=== PATIENT | male | born 1950 | race Caucasian/White ===

== ENCOUNTER 2017-03-26 14:40 | Inpatient (IN) | payer MEDICARE, MEDICAID ==
--- NOTE | 2017-03-26 14:52 | ED Physician Chart ---
ED Chief Complaint/HPI - Patient Information Date Seen:: 03/26/17 Time Seen:: 14:45 Chief Complaint:: Agitation History of Present Illness:: onset x one day of agitation and a threat to others; no report of SIs, trauma, H /As, S/T, C/P, SOB, Abd. Pain, A/N/V/D/C, fever, chills, or urinary s/s Historian:: Patient, EMS Review:: Nurse's Note Reviewed, EMS run form Reviewed ED Review of Systems - Review of Systems General/Constitutional: No fever, No chills, No weight loss, No weakness, No diaphoresis, No edema, No loss of appetite Skin: No skin lesions, No rash, No bruising Head: No headache, No light-headedness Eyes: No loss of vision, No pain, No diplopia ENT: No earache, No nasal drainage, No sore throat, No tinnitus Neck: No neck pain, No swelling, No thyromegaly, No stiffness, No mass noted Cardio Vascular: No chest pain, No palpitations, No PND, No orthopnea, No edema Pulmonary: No SOB, No cough, No sputum, No wheezing GI: No nausea, No vomiting, No diarrhea, No pain, No melena, No hematochezia, No constipation, No hematemesis G/U: No dysuria, No frequency, No hematuria, No nacturia Musculoskeletal: No bone or joint pain, No back pain, No muscle pain Endocrine: No polyuria, No polydipsia Psychiatric: Prior psych history, No depression, Anxiety, No suicidal ideation, No homicidal ideation, No auditory hallucination, No visual hallucination Hematopoietic: No bruising, No lymphadenopathy Allergic/Immuno: No urticaria, No angioedema Neurological: No syncope, No focal symptoms, No weakness, No paresthesia, No headache, No seizure, No dizziness, No confusion, No vertigo ED Past Medical History - Past Medical History Obtainable: Yes Past Medical History: DM, CAD, CHF, CVA/TIA, Dyslipidemia, Thyroid disorder, Arthritis, Other (Anemia) Family History: Diabetes Melitus, HTN Social History: Non Smoker, No Alcohol, No Drug Use, Single, Care Facility Surgical History: None Psychiatricy History: Schizophrenia, Bipolar Medication: Reviewed Family Medical History - Family Member Father Living Status: Hx Family Cancer: No Hx Family Coronary Artery Disease: No Hx Family Congestive Heart Failure: No Hx Family Diabetes: No Hx Family Seizures: No Hx Family HIV: No Hx Family Tuberculosis: No ED Physical Exam - Physical Examination General/Constitutional: Awake, Well-developed, well-nourished, Alert, No distress, GCS 15, Non-toxic appearing, Ambulatory Head: Atraumatic Eyes: Lids, conjuctiva normal, PERRL, EOMI Skin: Nl inspection, No rash, No skin lesions, No ecchymosis, Well hydrated, No lymphadenopathy ENMT: External ears, nose nl, TM canals nl, Nasal exam nl, Lips, teeth, gums nl , Oropharynx nl, Tonsils nl Neck: Nontender, Full ROM w/o pain, No JVD, No nuchal rigidity, No bruit, No mass, No stridor Respiratory: Nl effort/Exclusion, Clear to Auscultation, No Wheeze/Rhonchi/Rales Cardio Vascular: RRR, No murmur, gallop, rubs, NL S1 S2, Carotid/Femoral/Distal pulses equal bilaterally GI: No tenderness/rebounding/guarding, No organomegaly, No hernia, Normal BS's, Nondistended, No mass/bruits, No McBurney tenderness : No CVA tenderness Extremities: No tenderness or effusion, Full ROM, normal strength in all extremities, No edema, Normal digits & nails Neuro/Psych: Alert/oriented, DTR's symmetric, Normal sensory exam, Normal motor strength, Judgement/insight normal, Mood normal, Normal gait, No focal deficits Other Neuro/Psych comments:: no SIs; Mood/Affect: Stable Misc: Normal back, No paraspinal tenderness ED Labs/Radiology/EKG Results - Lab Results Comments:: Glucoce: 301; Na+: 134 - EKG Interpretations EKG Time:: 15:00 Rate & Rhythm: 83; NSR Comments:: non-specific st-t changes ED Septic Shock - . Is Septic Shock (SBP<90, OR Lactate>4 mmol\L) present?: No ED Reassessment (Disposition) - Reassessment Reassessment Condition:: Improved - Diagnosis Diagnosis:: Diabetes Mellitus; Hyperglycemia; Hyponatremia; Medical Clearance; Bipolar Disorder; Agitation - Aftercare/Follow up Instructions Aftercare/Follow-Up Instructions:: Counseled pt regarding lab results/diagnosis & need follow up, Counseled pt & family regarding lab results/diagnosis & need follow up - Patient Disposition Discharge/Transfer:: Acute Care w/in this hosp Admitted to:: [facility] Condition at Disposition:: Stable, Improved
[2017-03-26 15:18] LABS: % BASOPHILS 0.1 % (0.0-2.0); % EOSINOPHILS 1.5 % (0.0-5.0); % LYMPHOCYTES 24.8 % (20.0-50.0); % MONOCYTES 3.6 % (2.0-10.0); EOSINOPHILE ABSOLUTE 0.1 Th/cmm (0.1-0.4); HEMOGLOBIN 15.4 gm/dL (12-16); LYMPHOCYTE ABSOLUTE 1.7 Th/cmm (1.5-3.0); MEAN CELL VOLUME 92.8 fl (80-99); MEAN CORPUSCULAR HGB CONC 33.4 pg (28.0-36.0); MEAN PLATELET VOLUME 7.9 fl; MONOCYTE ABSOLUTE 0.2 Th/cmm (0.3-1.0); NEUTROPHILE ABSOLUTE 4.8 Th/cmm (1.8-8.0); PLATELET COUNT 265 Th/cmm (150-400); RED BLOOD COUNT 4.96 Mil/cmm (3.80-5.80); RED CELL DISTRIBUTION WIDTH 12.9 % (11.5-20.0); WHITE BLOOD COUNT 6.8 Th/cmm (4.8-10.8)
[2017-03-26 15:38] LABS: ALB/GLOB RATIO 1.2 (1.0-1.8); ALBUMIN 4.1 gm/dL (4.2-5.5); ALKALINE PHOSPHATASE 71 U/L (34-104); ANION GAP 11.7 (7.0-16.0); BILIRUBIN,TOTAL 0.6 mg/dL (0.3-1.0); BUN - UREA NITROGEN 12 mg/dL (7-25); CALCIUM SERUM 9.4 mg/dL (8.6-10.3); CARBON DIOXIDE 28.4 mEq/L (21.0-31.0); CHLORIDE 98 mEq/L (98-107); CHOLESTEROL 155 mg/dL (<200); CREATININE - SERUM 0.6 mg/dL (0.7-1.3); GFR AFRICAN-AMERICAN > 60.0 ml/min (>90); GFR NON AFRICAN-AMERICAN > 60.0 ml/min; GLUCOSE 301 mg/dL (70-105); HDL -HIGH DENSITY LIPOPROTEIN 39 mg/dL (23-92); POTASSIUM SERUM 4.1 mEq/L (3.5-5.1); SGOT 16 U/L (13-39); SGPT/ALT 20 U/L (7-52); SODIUM SERUM 134 mEq/L (136-145); TOTAL PROTEIN,SERUM 7.6 gm/dL (6.0-8.3); TRIGLYCERIDES 205 mg/dL (<150)
[2017-03-26 15:52] LABS: ACETAMINOPHEN < 10.0 ug/mL (10.0-30.0); SALICYLATES (ASPIRIN) < 25.0 mg/L (30.0-100.0)
[2017-03-26 15:53] LABS: URINE MICROSCOPIC INDICATED? YES; URINE SOURCE CLEAN C
[2017-03-26 15:57] LABS: URINE BILIRUBIN NEGATIVE (NEGATIVE); URINE BLOOD NEGATIVE (NEGATIVE); URINE GLUCOSE (UA) >=1000 mg/dL (NEGATIVE); URINE KETONE TRACE mg/dL (NEGATIVE); URINE LEUKOCYTE ESTERASE NEGATIVE (NEGATIVE); URINE NITRATE NEGATIVE (NEGATIVE); URINE PROTEIN NEGATIVE (NEGATIVE)
[2017-03-26 16:04] LABS: URINE CLARITY CLEAR (CLEAR); URINE COLOR YELLOW
[2017-03-26 16:07] LABS: URINE BACTERIA NONE SEEN /hpf (NONE SEEN); URINE EPITHELIAL CELLS NONE SEEN /lpf (FEW); URINE RBC NONE SEEN /hpf (0-5); URINE WBC NONE SEEN /hpf (0-5)
[2017-03-26 16:17] LABS: AMPHETAMINE URINE NEGATIVE (NEGATIVE); BARBITURATES URINE NEGATIVE (NEGATIVE); BENZODIAZEPINES QUAL URINE NEGATIVE (NEGATIVE); CANNABINOID THC NEGATIVE (NEGATIVE); COCAINE METABOLITE QUAL URINE NEGATIVE (NEGATIVE); METHADONE URINE NEGATIVE (NEGATIVE); METHAMPHETAMINES QUAL URINE NEGATIVE (NEGATIVE); OPIATES (MORPHINE) QUAL. URINE NEGATIVE (NEGATIVE); PHENCYCLIDINE (PCP) URINE NEGATIVE (NEGATIVE); TRICYCLICS (TCA) QUAL. URINE NEGATIVE (NEGATIVE)
[2017-03-26] MEDS ORDERED: INSULIN HUMAN REGULAR 100 UNITS/ML UNIT SUBQ ONE (16:50)
[2017-03-26 18:07] VITALS: BP 130/89
[2017-03-26] MEDS: INSULIN ASPART SLIDING SCALE 100 UNITS/ML UNIT SUBQ SCH (20:28)
[2017-03-26] MEDS: Polyvinyl Alcohol Ophth Soln 15 mL Bottle EACH EYE SCH (21:20)
--- NOTE | 2017-03-26 22:03 | History & Physical ---
ADMIT DATE: 03/26/2017 HISTORY OF PRESENT ILLNESS: This patient came to the Emergency Room, brought from the halfway with a history that he has been having history of severe agitation, threat to others from nursing facility. No history of nausea, vomiting, diarrhea, fever, chills, etc. History obtained from the EMS. Nurses' notes were reviewed. The patient has no fever, no chills, no rigors, no neck pain, no chest pain, no shortness of breath. Cardiovascular montoya also negative. No bone pain. PAST MEDICAL HISTORY: The patient has a family history of diabetes and hypertension, and history of hypertension, diabetes and history of CVA. PHYSICAL EXAMINATION: GENERAL: Well-developed, well-nourished male. VITAL SIGNS: Stable. HEENT: Head: Normal. ENT: Normal. NECK: Supple, nontender. LUNGS: Clear. CARDIOVASCULAR SYSTEM: S1, S2 heard. ABDOMEN: Soft. Bowel sounds are heard. LABORATORY AND DIAGNOSTIC DATA: EKG showed nonspecific ST-T changes. ADMITTING DIAGNOSES: Bipolar disorder, agitation, hyponatremia, hyperglycemia, diabetes mellitus. The patient is going to be admitted to Geropsych Unit where I will be following the patient and take care of his medical problems. JOB# [id number]
[2017-03-27] MEDS: INSULIN ASPART SLIDING SCALE 100 UNITS/ML UNIT SUBQ SCH ×4 (06:39→21:20)
[2017-03-27] MEDS ORDERED: METFORMIN HCL 500 MG PO SCH (09:00)
[2017-03-27 09:08] LABS: INR 1.23 (0.5-1.4); PROTHROMBIN TIME (TEST) 12.9 SECONDS (9.5-11.5)
[2017-03-27] MEDS: Multivitamin Tab PO SCH (09:10)
[2017-03-27] MEDS: Docusate Sodium 100 mg/10 mL UD PO SCH (09:16)
[2017-03-27] MEDS: Vitamin D3 2,000 IU SGL PO SCH (09:17)
[2017-03-27] MEDS: Polyvinyl Alcohol Ophth Soln 15 mL Bottle EACH EYE SCH ×4 (09:25→21:21)
--- NOTE | 2017-03-27 10:02 | General Progress Note ---
Subjective - Review of Systems Events since last encounter: patient agitated irritable Objective - Results Result Diagrams: 03/26/17 15:10 03/26/17 15:10 Recent Labs: Laboratory Last Values WBC 6.8 Th/cmm (4.8-10.8) 03/26/17 15:10 RBC 4.96 Mil/cmm (3.80-5.80) 03/26/17 15:10 Hgb 15.4 gm/dL (12-16) 03/26/17 15:10 Hct 46.0 % (41.0-60) 03/26/17 15:10 MCV 92.8 fl (80-99) 03/26/17 15:10 MCH 31.0 pg (27.0-31.0) 03/26/17 15:10 MCHC Differential 33.4 pg (28.0-36.0) 03/26/17 15:10 RDW 12.9 % (11.5-20.0) 03/26/17 15:10 Plt Count 265 Th/cmm (150-400) 03/26/17 15:10 MPV 7.9 fl 03/26/17 15:10 Neutrophils % 70.0 % (40.0-80.0) 03/26/17 15:10 Lymphocytes % 24.8 % (20.0-50.0) 03/26/17 15:10 Monocytes % 3.6 % (2.0-10.0) 03/26/17 15:10 Eosinophils % 1.5 % (0.0-5.0) 03/26/17 15:10 Basophils % 0.1 % (0.0-2.0) 03/26/17 15:10 PT 12.9 SECONDS (9.5-11.5) H 03/27/17 08:30 INR 1.23 (0.5-1.4) 03/27/17 08:30 PTT (Actin FS) 25.9 SECONDS (26.0-38.0) L 03/27/17 08:30 Sodium 134 mEq/L (136-145) L 03/26/17 15:10 Potassium 4.1 mEq/L (3.5-5.1) 03/26/17 15:10 Chloride 98 mEq/L (98-107) 03/26/17 15:10 Carbon Dioxide 28.4 mEq/L (21.0-31.0) 03/26/17 15:10 Anion Gap 11.7 (7.0-16.0) 03/26/17 15:10 BUN 12 mg/dL (7-25) 03/26/17 15:10 Creatinine 0.6 mg/dL (0.7-1.3) L 03/26/17 15:10 Est GFR ( Amer) > 60.0 ml/min (>90) 03/26/17 15:10 Est GFR (Non-Af Amer) > 60.0 ml/min 03/26/17 15:10 BUN/Creatinine Ratio 20.0 03/26/17 15:10 Glucose 301 mg/dL (70-105) H 03/26/17 15:10 Calcium 9.4 mg/dL (8.6-10.3) 03/26/17 15:10 Total Bilirubin 0.6 mg/dL (0.3-1.0) 03/26/17 15:10 AST 16 U/L (13-39) 03/26/17 15:10 ALT 20 U/L (7-52) 03/26/17 15:10 Alkaline Phosphatase 71 U/L (34-104) 03/26/17 15:10 Total Protein 7.6 gm/dL (6.0-8.3) 03/26/17 15:10 Albumin 4.1 gm/dL (4.2-5.5) L 03/26/17 15:10 Globulin 3.5 gm/dL 03/26/17 15:10 Albumin/Globulin Ratio 1.2 (1.0-1.8) 03/26/17 15:10 Triglycerides 205 mg/dL (<150) H 03/26/17 15:10 Cholesterol 155 mg/dL (<200) 03/26/17 15:10 LDL Cholesterol Direct 100 mg/dL (75-193) 03/26/17 15:10 HDL Cholesterol 39 mg/dL (23-92) 03/26/17 15:10 TSH 3.29 uIU/ml (0.34-5.60) 03/26/17 15:10 Urine Source CLEAN C 03/26/17 15:40 Urine Color YELLOW 03/26/17 15:40 Urine Clarity CLEAR (CLEAR) 03/26/17 15:40 Urine pH 7.0 (4.6 - 8.0) 03/26/17 15:40 Ur Specific [place] 1.015 (1.005-1.030) 03/26/17 15:40 Urine Protein NEGATIVE mg/dL (NEGATIVE) 03/26/17 15:40 Urine Glucose (UA) >=1000 mg/dL (NEGATIVE) H 03/26/17 15:40 Urine Ketones TRACE mg/dL (NEGATIVE) 03/26/17 15:40 Urine Blood NEGATIVE (NEGATIVE) 03/26/17 15:40 Urine Nitrate NEGATIVE (NEGATIVE) 03/26/17 15:40 Urine Bilirubin NEGATIVE (NEGATIVE) 03/26/17 15:40 Urine Urobilinogen 4.0 E.U./dL (0.2 - 1.0) H 03/26/17 15:40 Ur Leukocyte Esterase NEGATIVE (NEGATIVE) 03/26/17 15:40 Urine RBC NONE SEEN /hpf (0-5) 03/26/17 15:40 Urine WBC NONE SEEN /hpf (0-5) 03/26/17 15:40 Ur Epithelial Cells NONE SEEN /lpf (FEW) 03/26/17 15:40 Urine Bacteria NONE SEEN /hpf (NONE SEEN) 03/26/17 15:40 Salicylates < 25.0 mg/L (30.0-100.0) L 03/26/17 15:10 Urine Opiates Screen NEGATIVE (NEGATIVE) 03/26/17 15:40 Urine Methadone Screen NEGATIVE (NEGATIVE) 03/26/17 15:40 Acetaminophen < 10.0 ug/mL (10.0-30.0) L 03/26/17 15:10 Ur Barbiturates Screen NEGATIVE (NEGATIVE) 03/26/17 15:40 Valproic Acid 11.6 ug/mL (50.0-100.0) L 03/27/17 08:30 Ur Tricyclics Screen NEGATIVE (NEGATIVE) 03/26/17 15:40 Ur Phencyclidine Scrn NEGATIVE (NEGATIVE) 03/26/17 15:40 Amphetamines Screen NEGATIVE (NEGATIVE) 03/26/17 15:40 U Methamphetamines Scrn NEGATIVE (NEGATIVE) 03/26/17 15:40 U Benzodiazepines Scrn NEGATIVE (NEGATIVE) 03/26/17 15:40 U Cocaine Metab Screen NEGATIVE (NEGATIVE) 03/26/17 15:40 U Cannabinoids Screen NEGATIVE (NEGATIVE) 03/26/17 15:40 Ethyl Alcohol < 10 mg/dL (0-10) 03/26/17 15:10 - Physical Exam Vitals and I&O: Vital Signs Temp 98.6 F 03/27/17 06:26 Pulse 70 03/27/17 06:26 Resp 19 03/27/17 06:26 BP 110/64 03/27/17 06:26 Pulse Ox 96 03/27/17 06:26 Intake & Output 03/26/17 03/27/17 03/27/17 18:59 06:59 18:59 Intake Total 120 Balance 120 Intake: Oral 120 Other: # Voids 3 Active Medications: Current Medications Acetaminophen (Tylenol) 650 mg PO Q4HR PRN PRN Reason: Pain (Mild) Stop: 05/25/17 18:48 Artificial Tears (Artificial Tears Ophth Soln) 1 drop EACH EYE QID [facility] Stop: 05/25/17 21:29 Last Admin: 03/27/17 09:25 Dose: Not Given Baclofen (Lioresal) 5 mg PO Q8HR LG Stop: 05/25/17 20:59 Last Admin: 03/27/17 05:45 Dose: 5 mg Cyanocobalamin (Vitamin B12) 1,000 mcg PO DAILY LG Stop: 05/26/17 08:59 Last Admin: 03/27/17 09:17 Dose: 1,000 mcg Divalproex Sodium (Depakote Dr) 375 mg PO HS LG PRN Reason: Protocol Stop: 05/25/17 21:59 Last Admin: 03/26/17 22:21 Dose: Not Given Docusate Sodium (Colace) 250 mg PO DAILY LG Stop: 05/26/17 08:59 Last Admin: 03/27/17 09:16 Dose: 250 mg Fluocinonide (Lidex 0.05%) 1 appl TP DAILY LG Stop: 05/26/17 08:59 Last Admin: 03/27/17 09:17 Dose: Not Given Folic Acid (Folate) 1 mg PO DAILY LG Stop: 05/26/17 08:59 Last Admin: 03/27/17 09:18 Dose: 1 mg Glimepiride (Amaryl) 4 mg PO BID LG Stop: 05/26/17 08:59 Last Admin: 03/27/17 09:10 Dose: 4 mg Insulin Aspart (Novolog Insulin Sliding Scale) 0 units SUBQ ACHS LG PRN Reason: Protocol Stop: 05/25/17 20:59 Last Admin: 03/27/17 06:39 Dose: Not Given Ketoconazole (Nizoral 2% Cream) 1 appl TP DAILY [facility] Stop: 05/26/17 08:59 Last Admin: 03/27/17 09:18 Dose: Not Given Loratadine (Claritin) 10 mg PO DAILY [facility] Stop: 05/26/17 08:59 Last Admin: 03/27/17 09:10 Dose: 10 mg Lorazepam (Ativan) 0.5 mg PO Q4HR PRN; Protocol PRN Reason: Anxiety/Agitation Stop: 05/25/17 21:15 Metformin HCl (Glucophage) 500 mg PO BID [facility] Stop: 05/26/17 08:59 Last Admin: 03/27/17 09:09 Dose: 500 mg Methimazole (Tapazole) 5 mg PO DAILY [facility] Stop: 05/26/17 08:59 Last Admin: 03/27/17 09:28 Dose: Not Given Multivitamins/Vitamin C (Theragran) 1 tab PO DAILY [facility] Stop: 05/26/17 08:59 Last Admin: 03/27/17 09:10 Dose: 1 tab Quetiapine Fumarate (Seroquel) 25 mg PO TID LG PRN Reason: Protocol Stop: 05/26/17 08:59 Last Admin: 03/27/17 09:28 Dose: Not Given Simvastatin (Zocor) 40 mg PO HS [facility] Stop: 05/26/17 20:59 Tramadol HCl (Ultram) 50 mg PO TID PRN PRN Reason: Pain (Moderate) Stop: 05/25/17 18:48 Last Admin: 03/26/17 20:26 Dose: 50 mg Vitamin D (Vitamin D3) 2,000 iu PO DAILY [facility] Stop: 05/26/17 08:59 Last Admin: 03/27/17 09:17 Dose: 2,000 iu Warfarin Sodium (Coumadin) 2 mg PO DAILY LG PRN Reason: Protocol Stop: 05/26/17 08:59 Warfarin Sodium (Coumadin Per Pharmacy) 1 ea MC UD [facility] Stop: 05/26/17 08:59 Zolpidem Tartrate (Ambien) 5 mg PO HS PRN PRN Reason: Insomnia Stop: 05/25/17 21:17 General: No acute distress HEENT: Atraumatic Neck: Supple, JVD Cardiovascular: Regular rate, Normal S1 Assessment/Plan - Problem List Patient Problems: All Active Problems Agitation (Acute) R45.1 Bipolar disease, chronic (Acute) F31.9 Diabetes mellitus (Acute) E11.9 Diabetes mellitus (Acute) E11.9 Hyperglycemia (Acute) R73.9 Hyponatremia (Acute) E87.1 - Plan Plan: cpm as per psych
[2017-03-27 12:58] LABS: A1C % 9.8 % (4.0-6.0)
--- NOTE | 2017-03-27 20:20 | Psychosocial Evaluation ---
DATE OF SERVICE: 03/26/2017 INITIAL EVALUATION MENTAL STATUS EXAM AGE: 66. SEX: Male. PHYSICIAN: Dr. Gómez. CHIEF COMPLAINT: 5150 hold for dangerous to others. HISTORY OF PRESENT ILLNESS: The patient is a 66-year-old male, who was placed on a [address] Bal and Dr. Hodges to [facility] from [facility]. The patient has been threatening his roommate and has been cursing the staff in the jail. Also, has been throwing items at staff and other residents. Also, has been angry, agitated, yelling, and threatening staff and he was not able to follow directions. The patient has history of bipolar disorder and has been easily angry and agitated. PAST PSYCHIATRIC HISTORY: The patient has history of bipolar disorder with multiple psychiatric hospitalizations. PAST MEDICAL HISTORY: The patient has right below knee amputation. FAMILY HISTORY: Noncontributory. SOCIAL HISTORY: The patient lives in [facility]. No known alcohol or drug use. ALLERGIES: No known allergies. MENTAL STATUS EXAMINATION: The patient appears his stated age. Heavy makeup on face. Thought processes are circumstantial with occasional flight of ideas. The patient denies any auditory or visual hallucinations, but seems to be responding to stimuli. The patient denies suicidal or homicidal ideations. The patient is alert and oriented to time, place, person, and situation. Intact immediate, recent, and remote memories. Poor insight and poor judgment. TREATMENT PLAN: We will monitor the patient's behavior and condition closely. We will restart psychotropic medications. We will adjust psychotropic medications and work on his poor impulse control. ESTIMATED LENGTH OF STAY: 5-7 days. THE PATIENT'S STRENGTHS AND WEAKNESSES: The patient's strength is not clear at this time. Weaknesses is ineffective coping and is agitation. AFTER DISCHARGE PLAN: Outpatient treatment and followup will continue as an outpatient. CRITERIA FOR DISCHARGE: The patient will not be psychotic or agitated and will stabilize psychotropic medications and will establish outpatient treatment plans. JOB# [id number]
--- NOTE | 2017-03-28 00:03 | Progress Notes ---
DATE: SUBJECTIVE: Chart reviewed and the patient interviewed. Also discussed the patient's condition with the staff and reviewed records and labs. The patient is still irritable and is still agitated. The patient also is still disruptive and is still aggressive with peers and with the staff. Also, still needs lots of redirections. The patient also still has difficulty with his mood and he is still easily agitated and needs lots of observation because of unpredictable behavior. On the other hand, the patient is compliant with taking his medications. The patient denies any side effects of medications. ASSESSMENT: The patient is still agitated and irritable and can be dangerous to others. TREATMENT PLAN: The patient is taking Depakote. We will add Seroquel in a dose of 25 mg 3 times a day and we will continue to monitor his behavior and his condition closely. Also, we will get Depakote blood level. JOB# [id number]
[2017-03-28] MEDS: INSULIN ASPART SLIDING SCALE 100 UNITS/ML UNIT SUBQ SCH ×4 (07:15→20:52)
[2017-03-28 09:09] LABS: INR 1.16 (0.5-1.4); PROTHROMBIN TIME (TEST) 12.2 SECONDS (9.5-11.5)
[2017-03-28] MEDS: Vitamin D3 2,000 IU SGL PO SCH (09:09)
[2017-03-28] MEDS: Docusate Sodium 100 mg/10 mL UD PO SCH (09:10)
[2017-03-28] MEDS: Multivitamin Tab PO SCH (09:10)
[2017-03-28] MEDS: Polyvinyl Alcohol Ophth Soln 15 mL Bottle EACH EYE SCH ×4 (09:11→20:53)
[2017-03-29] MEDS: INSULIN ASPART SLIDING SCALE 100 UNITS/ML UNIT SUBQ SCH ×4 (06:41→21:14)
[2017-03-29] MEDS: Docusate Sodium 100 mg/10 mL UD PO SCH (08:35)
[2017-03-29] MEDS: Multivitamin Tab PO SCH (08:38)
[2017-03-29] MEDS: Vitamin D3 2,000 IU SGL PO SCH (08:38)
--- NOTE | 2017-03-29 08:58 | Progress Notes ---
DATE: 03/28/2017 SUBJECTIVE: Chart reviewed and the patient interviewed. Also discussed the patient's condition with the staff and reviewed records and labs. The patient seems to be calmer and he is less agitated. The patient also is still withdrawn and guarded. The patient also refused to take insulin and when asking about the reasons, the patient said "because I am taking metformin and I do not like insulin." He also still at times feels hopeless. The patient also is still easily agitated at times. Otherwise, the patient is compliant with taking his medications and no side effects of medications. ASSESSMENT: The patient is still depressed and periods of agitation. TREATMENT PLAN: We will continue to monitor his behavior and his condition closely. Also, continue to work on his compliance with treatment and also on his ineffective coping as well as poor impulse control. JOB# [id number]
[2017-03-29] MEDS: Polyvinyl Alcohol Ophth Soln 15 mL Bottle EACH EYE SCH ×4 (09:20→21:16)
--- NOTE | 2017-03-29 18:45 | Progress Notes ---
DATE: 03/29/2017 SUBJECTIVE: The patient was seen in his room, lying in the bed. The patient is asleep, but easily arousable, otherwise the patient appears to be comfortable in no acute distress. The patient appears to be irritable and guarded at this time. OBJECTIVE: VITAL SIGNS: Temperature of 97.4, heart rate of 81, respiration 20, blood pressure 120/67, 98% on room air. HEENT: Head is atraumatic and normocephalic. Eyes: Bilateral conjunctivae are clear. Bilateral pupils are equally round and reactive. NECK: Supple. No JVD. CARDIOVASCULAR: S1 and S2, without murmur. PULMONARY: Clear to auscultation. GASTROINTESTINAL: Soft and nontender without guarding. Positive bowel sounds. MUSCULOSKELETAL: No clubbing, no cyanosis noted. ASSESSMENT: 1. Bipolar disorder. 2. Diabetes mellitus. 3. Osteoarthritis. 4. Vitamin D deficiency. 5. Anemia. 6. Hyperlipidemia. PLAN: We will continue to keep the patient inpatient. We will follow up with the psychiatrist to monitor the patient's condition and behavior. Treatment plans were discussed with the patient's nurse. Treatment plans were discussed with Dr. Corley. JOB# [id number]
[2017-03-30] MEDS: INSULIN ASPART SLIDING SCALE 100 UNITS/ML UNIT SUBQ SCH ×4 (06:47→21:41)
[2017-03-30 07:41] LABS: INR 1.25 (0.5-1.4); PROTHROMBIN TIME (TEST) 13.1 SECONDS (9.5-11.5)
--- NOTE | 2017-03-30 08:02 | Progress Notes ---
DATE: PSYCHIATRIC PROGRESS NOTE SUBJECTIVE: Chart reviewed and the patient interviewed. Also discussed the patient's condition with the staff and reviewed the record and labs. The patient still had episodes of agitation and anger, but his affect is brighter. The patient also is still having mood swings. He also is still refusing to take insulin, but his reasoning is because he is taking metformin. Discussed with the patient that his insulin is because his blood sugar is still high, although he is taking metformin and he needs both. Otherwise, the patient seems to be slightly calmer than before and he is quiet. ASSESSMENT: The patient is still anxious and is still agitated. TREATMENT PLAN: We will continue monitoring his behavior and his condition closely. Also, continue to work on both his ineffective coping and his impulse control and we will continue to follow up. [facility]# [id number]
[2017-03-30] MEDS: Vitamin D3 2,000 IU SGL PO SCH (08:57)
[2017-03-30] MEDS: Multivitamin Tab PO SCH (08:57)
[2017-03-30] MEDS: Polyvinyl Alcohol Ophth Soln 15 mL Bottle EACH EYE SCH ×4 (08:58→21:35)
[2017-03-30] MEDS: Docusate Sodium 100 mg/10 mL UD PO SCH (08:58)
--- NOTE | 2017-03-30 10:21 | General Progress Note ---
Subjective - Review of Systems Events since last encounter: patient still paranoid anxious Objective - Results Result Diagrams: 03/26/17 15:10 03/26/17 15:10 Recent Labs: Laboratory Last Values WBC 6.8 Th/cmm (4.8-10.8) 03/26/17 15:10 RBC 4.96 Mil/cmm (3.80-5.80) 03/26/17 15:10 Hgb 15.4 gm/dL (12-16) 03/26/17 15:10 Hct 46.0 % (41.0-60) 03/26/17 15:10 MCV 92.8 fl (80-99) 03/26/17 15:10 MCH 31.0 pg (27.0-31.0) 03/26/17 15:10 MCHC Differential 33.4 pg (28.0-36.0) 03/26/17 15:10 RDW 12.9 % (11.5-20.0) 03/26/17 15:10 Plt Count 265 Th/cmm (150-400) 03/26/17 15:10 MPV 7.9 fl 03/26/17 15:10 Neutrophils % 70.0 % (40.0-80.0) 03/26/17 15:10 Lymphocytes % 24.8 % (20.0-50.0) 03/26/17 15:10 Monocytes % 3.6 % (2.0-10.0) 03/26/17 15:10 Eosinophils % 1.5 % (0.0-5.0) 03/26/17 15:10 Basophils % 0.1 % (0.0-2.0) 03/26/17 15:10 PT 13.1 SECONDS (9.5-11.5) H 03/30/17 06:54 INR 1.25 (0.5-1.4) 03/30/17 06:54 PTT (Actin FS) 25.9 SECONDS (26.0-38.0) L 03/27/17 08:30 Sodium 134 mEq/L (136-145) L 03/26/17 15:10 Potassium 4.1 mEq/L (3.5-5.1) 03/26/17 15:10 Chloride 98 mEq/L (98-107) 03/26/17 15:10 Carbon Dioxide 28.4 mEq/L (21.0-31.0) 03/26/17 15:10 Anion Gap 11.7 (7.0-16.0) 03/26/17 15:10 BUN 12 mg/dL (7-25) 03/26/17 15:10 Creatinine 0.6 mg/dL (0.7-1.3) L 03/26/17 15:10 Est GFR ( Amer) > 60.0 ml/min (>90) 03/26/17 15:10 Est GFR (Non-Af Amer) > 60.0 ml/min 03/26/17 15:10 BUN/Creatinine Ratio 20.0 03/26/17 15:10 Glucose 301 mg/dL (70-105) H 03/26/17 15:10 POC Glucose 115 MG/DL (70 - 105) H 03/30/17 06:21 Hemoglobin A1c % 9.8 % (4.0-6.0) H 03/26/17 15:10 Calcium 9.4 mg/dL (8.6-10.3) 03/26/17 15:10 Total Bilirubin 0.6 mg/dL (0.3-1.0) 03/26/17 15:10 AST 16 U/L (13-39) 03/26/17 15:10 ALT 20 U/L (7-52) 03/26/17 15:10 Alkaline Phosphatase 71 U/L (34-104) 03/26/17 15:10 Total Protein 7.6 gm/dL (6.0-8.3) 03/26/17 15:10 Albumin 4.1 gm/dL (4.2-5.5) L 03/26/17 15:10 Globulin 3.5 gm/dL 03/26/17 15:10 Albumin/Globulin Ratio 1.2 (1.0-1.8) 03/26/17 15:10 Triglycerides 205 mg/dL (<150) H 03/26/17 15:10 Cholesterol 155 mg/dL (<200) 03/26/17 15:10 LDL Cholesterol Direct 100 mg/dL (75-193) 03/26/17 15:10 HDL Cholesterol 39 mg/dL (23-92) 03/26/17 15:10 TSH 3.29 uIU/ml (0.34-5.60) 03/26/17 15:10 Urine Source CLEAN C 03/26/17 15:40 Urine Color YELLOW 03/26/17 15:40 Urine Clarity CLEAR (CLEAR) 03/26/17 15:40 Urine pH 7.0 (4.6 - 8.0) 03/26/17 15:40 Ur Specific [place] 1.015 (1.005-1.030) 03/26/17 15:40 Urine Protein NEGATIVE mg/dL (NEGATIVE) 03/26/17 15:40 Urine Glucose (UA) >=1000 mg/dL (NEGATIVE) H 03/26/17 15:40 Urine Ketones TRACE mg/dL (NEGATIVE) 03/26/17 15:40 Urine Blood NEGATIVE (NEGATIVE) 03/26/17 15:40 Urine Nitrate NEGATIVE (NEGATIVE) 03/26/17 15:40 Urine Bilirubin NEGATIVE (NEGATIVE) 03/26/17 15:40 Urine Urobilinogen 4.0 E.U./dL (0.2 - 1.0) H 03/26/17 15:40 Ur Leukocyte Esterase NEGATIVE (NEGATIVE) 03/26/17 15:40 Urine RBC NONE SEEN /hpf (0-5) 03/26/17 15:40 Urine WBC NONE SEEN /hpf (0-5) 03/26/17 15:40 Ur Epithelial Cells NONE SEEN /lpf (FEW) 03/26/17 15:40 Urine Bacteria NONE SEEN /hpf (NONE SEEN) 03/26/17 15:40 Salicylates < 25.0 mg/L (30.0-100.0) L 03/26/17 15:10 Urine Opiates Screen NEGATIVE (NEGATIVE) 03/26/17 15:40 Urine Methadone Screen NEGATIVE (NEGATIVE) 03/26/17 15:40 Acetaminophen < 10.0 ug/mL (10.0-30.0) L 03/26/17 15:10 Ur Barbiturates Screen NEGATIVE (NEGATIVE) 03/26/17 15:40 Valproic Acid 11.6 ug/mL (50.0-100.0) L 03/27/17 08:30 Ur Tricyclics Screen NEGATIVE (NEGATIVE) 03/26/17 15:40 Ur Phencyclidine Scrn NEGATIVE (NEGATIVE) 03/26/17 15:40 Amphetamines Screen NEGATIVE (NEGATIVE) 03/26/17 15:40 U Methamphetamines Scrn NEGATIVE (NEGATIVE) 03/26/17 15:40 U Benzodiazepines Scrn NEGATIVE (NEGATIVE) 03/26/17 15:40 U Cocaine Metab Screen NEGATIVE (NEGATIVE) 03/26/17 15:40 U Cannabinoids Screen NEGATIVE (NEGATIVE) 03/26/17 15:40 Ethyl Alcohol < 10 mg/dL (0-10) 03/26/17 15:10 RPR NONREACTIVE (NONREACTIVE) 03/26/17 15:10 - Physical Exam Vitals and I&O: Vital Signs Temp 97.9 F 03/30/17 06:56 Pulse 79 03/30/17 06:56 Resp 18 03/30/17 06:56 BP 107/71 03/30/17 06:56 Pulse Ox 95 03/30/17 06:56 Intake & Output 03/29/17 03/30/17 03/30/17 18:59 06:59 18:59 Intake Total 1200 480 Balance 1200 480 Intake: Oral 1200 480 Other: # Voids 1 # Bowel Movements 1 Active Medications: Current Medications Acetaminophen (Tylenol) 650 mg PO Q4HR PRN PRN Reason: Pain (Mild) Stop: 05/25/17 18:48 Artificial Tears (Artificial Tears Ophth Soln) 1 drop EACH EYE QID [facility] Stop: 05/25/17 21:29 Last Admin: 03/30/17 08:58 Dose: 1 drop Baclofen (Lioresal) 5 mg PO Q8HR [facility] Stop: 05/25/17 20:59 Last Admin: 03/30/17 05:24 Dose: Not Given Cyanocobalamin (Vitamin B12) 1,000 mcg PO DAILY [facility] Stop: 05/26/17 08:59 Last Admin: 03/30/17 08:57 Dose: 1,000 mcg Divalproex Sodium (Depakote Dr) 375 mg PO HS [facility] PRN Reason: Protocol Stop: 05/25/17 21:59 Last Admin: 03/29/17 21:12 Dose: 375 mg Docusate Sodium (Colace) 250 mg PO DAILY [facility] Stop: 05/26/17 08:59 Last Admin: 03/30/17 08:58 Dose: 250 mg Fluocinonide (Lidex 0.05%) 1 appl TP DAILY [facility] Stop: 05/26/17 08:59 Last Admin: 03/30/17 08:58 Dose: 1 appl Folic Acid (Folate) 1 mg PO DAILY [facility] Stop: 05/26/17 08:59 Last Admin: 03/30/17 08:57 Dose: 1 mg Glimepiride (Amaryl) 4 mg PO BID LG Stop: 05/26/17 08:59 Last Admin: 03/30/17 08:57 Dose: 4 mg Insulin Aspart (Novolog Insulin Sliding Scale) 0 units SUBQ ACHS LG PRN Reason: Protocol Stop: 05/25/17 20:59 Last Admin: 03/30/17 06:47 Dose: Not Given Ketoconazole (Nizoral 2% Cream) 1 appl TP DAILY LG Stop: 05/26/17 08:59 Last Admin: 03/30/17 08:58 Dose: 1 appl Loratadine (Claritin) 10 mg PO DAILY LG Stop: 05/26/17 08:59 Last Admin: 03/30/17 08:57 Dose: 10 mg Lorazepam (Ativan) 0.5 mg PO Q4HR PRN; Protocol PRN Reason: Anxiety/Agitation Stop: 05/25/17 21:15 Metformin HCl (Glucophage) 500 mg PO BID LG Stop: 05/26/17 08:59 Last Admin: 03/30/17 08:57 Dose: 500 mg Methimazole (Tapazole) 5 mg PO DAILY LG Stop: 05/26/17 08:59 Last Admin: 03/30/17 08:57 Dose: 5 mg Multivitamins/Vitamin C (Theragran) 1 tab PO DAILY LG Stop: 05/26/17 08:59 Last Admin: 03/30/17 08:57 Dose: 1 tab Quetiapine Fumarate (Seroquel) 25 mg PO TID LG PRN Reason: Protocol Stop: 05/26/17 08:59 Last Admin: 03/30/17 08:57 Dose: 25 mg Simvastatin (Zocor) 40 mg PO HS [facility] Stop: 05/26/17 20:59 Last Admin: 03/29/17 21:13 Dose: 40 mg Tramadol HCl (Ultram) 50 mg PO TID PRN PRN Reason: Pain (Moderate) Stop: 05/25/17 18:48 Last Admin: 03/26/17 20:26 Dose: 50 mg Vitamin D (Vitamin D3) 2,000 iu PO DAILY LG Stop: 05/26/17 08:59 Last Admin: 03/30/17 08:57 Dose: 2,000 iu Warfarin Sodium (Coumadin Per Pharmacy) 1 ea MC UD LG Stop: 05/26/17 08:59 Warfarin Sodium (Coumadin) 5 mg PO 1300 ONE Stop: 03/30/17 13:01 Zolpidem Tartrate (Ambien) 5 mg PO HS PRN PRN Reason: Insomnia Stop: 05/25/17 21:17 General: No acute distress HEENT: Atraumatic Neck: Supple, JVD Cardiovascular: Regular rate, Normal S1 Assessment/Plan - Problem List Patient Problems: All Active Problems Agitation (Acute) R45.1 Bipolar disease, chronic (Acute) F31.9 Diabetes mellitus (Acute) E11.9 Diabetes mellitus (Acute) E11.9 Hyperglycemia (Acute) R73.9 Hyponatremia (Acute) E87.1 - Plan Plan: as per psych monitor vitals/diet labs will monitor Nutritional Asmnt/Malnutr-PDOC - Dietary Evaluation Malnutrition Findings (Please click <Entered> for more info): Nutritional Asmnt/Malnutrition Start: 03/27/17 15: 36 Text: Status: Complete Freq: Document 03/27/17 16:17 LCHENG (Rec: 03/27/17 16:21 LCHENG [email or web address]) Nutritional Asmnt/Malnutrition Patient General Information Nutritional Screening High Risk Pertinent Medical Hx/Surgical Hx DM, CAD, CHF, CVA/TIA, dyslipidemia, thryroid, arthritis, anemia, schizophrenia, bipolar Subjective Information Pt seen lying in bed working with lunch at time of visit. Pt reported appetite ok, has partial teeth noted, denied chewing or swallowing problem. Pt stated he has been on diabetic medications but missed two does and made blood sugar elevated. Per nurse notes, pt refused taking insulin. Pt denied he has wheat allergy. RN made aware and will talk to MD. Current Diet Order/ Nutrition Support CCHO-60gm, CHRISTIANO Pertinent Medications vitamin B12, colace, folic acid, novolog, glucophage, theragran, vitamin D3, coumadin Pertinent Labs 03/26 na 134, K 4.1, Cl 98, BUN 12, Cr 0.6, Glucose 301, A1c 9.8, Ca 9.4, Alb 4.1 03/27 POC 232 Nutritional Hx/Data Height 1.78 m Height (Calculated Centimeters) 177.8 Current Weight (lbs) 97.522 kg Weight (Calculated Kilograms) 97.5 Weight (Calculated Grams) 28431.4 [place] Body Weight 166 % [place] Body Weight 130 Body Mass Index (BMI) 30.8 GI Symptoms GI Symptoms None Last BM no record Difficult in: None Skin Integrity/Comment: WNL Estimated Nutritional Goals Calories/Kcals/Kg 25-30 Kcals Calculated 0986-1668 Protein g/k-1.2 Protein Calculated 76-91 Fluid: ml 1900-2280ml (1ml/kcal) Nutritional Problem 1. Problem Problem altered nutrition related lab values Etiology hx of DM, pt refusing to take insulin Signs/Symptoms: Glucose 301, A1c 9.8, POC 232 Malnutrition Alert Protein-Calorie Malnutrition N/A Is there a minimum of two criteria No selected? Query Text:Check all the applicable criteria. A minimum of two criteria are recommended for diagnosis of either severe or non-severe malnutrition. Intervention/Recommendation Comments 1. Continue with current diet as ordered. Explained [facility] diet to pt. Pt verbalized understanding and will follow it. 2. Monitor PO intake, wt, labs and skin integrity 3. F/U as moderate risk in 3-5 days, 03/30-04/01 Expected Outcomes/Goals Expected Outcomes/Goals 1. PO intake to meet at least 75% of nutritional needs. 2. Wt stability, skin to remain intact, labs to approach WNL.
--- NOTE | 2017-03-30 22:35 | Progress Notes ---
DATE: SUBJECTIVE: Chart reviewed and the patient interviewed. Also discussed the patient's condition with the staff and reviewed records and labs. The patient continued to be withdrawn and guarded. The patient also is interacting minimally with others. The patient is suspicious and is still paranoid. On the other hand, the patient is interacting more. He denied any side effect of medications. ASSESSMENT: The patient is still psychotic and depressed. TREATMENT PLAN: Continue monitoring his behavior closely. Also, continue to work on his irritability and agitation and adjusting psychotropic medications. [facility]# [id number]
[2017-03-31] MEDS: INSULIN ASPART SLIDING SCALE 100 UNITS/ML UNIT SUBQ SCH ×2 (06:56→16:07)
[2017-03-31] MEDS: Vitamin D3 2,000 IU SGL PO SCH (09:48)
[2017-03-31] MEDS: Docusate Sodium 100 mg/10 mL UD PO SCH (09:48)
[2017-03-31] MEDS: Multivitamin Tab PO SCH (09:49)
[2017-03-31] MEDS: Polyvinyl Alcohol Ophth Soln 15 mL Bottle EACH EYE SCH ×3 (09:49→16:50)
--- NOTE | 2017-03-31 12:37 | General Progress Note ---
Subjective - Review of Systems Events since last encounter: no change still psychotic Objective - Results Result Diagrams: 03/26/17 15:10 03/26/17 15:10 Recent Labs: Laboratory Last Values WBC 6.8 Th/cmm (4.8-10.8) 03/26/17 15:10 RBC 4.96 Mil/cmm (3.80-5.80) 03/26/17 15:10 Hgb 15.4 gm/dL (12-16) 03/26/17 15:10 Hct 46.0 % (41.0-60) 03/26/17 15:10 MCV 92.8 fl (80-99) 03/26/17 15:10 MCH 31.0 pg (27.0-31.0) 03/26/17 15:10 MCHC Differential 33.4 pg (28.0-36.0) 03/26/17 15:10 RDW 12.9 % (11.5-20.0) 03/26/17 15:10 Plt Count 265 Th/cmm (150-400) 03/26/17 15:10 MPV 7.9 fl 03/26/17 15:10 Neutrophils % 70.0 % (40.0-80.0) 03/26/17 15:10 Lymphocytes % 24.8 % (20.0-50.0) 03/26/17 15:10 Monocytes % 3.6 % (2.0-10.0) 03/26/17 15:10 Eosinophils % 1.5 % (0.0-5.0) 03/26/17 15:10 Basophils % 0.1 % (0.0-2.0) 03/26/17 15:10 PT 13.1 SECONDS (9.5-11.5) H 03/30/17 06:54 INR 1.25 (0.5-1.4) 03/30/17 06:54 PTT (Actin FS) 25.9 SECONDS (26.0-38.0) L 03/27/17 08:30 Sodium 134 mEq/L (136-145) L 03/26/17 15:10 Potassium 4.1 mEq/L (3.5-5.1) 03/26/17 15:10 Chloride 98 mEq/L (98-107) 03/26/17 15:10 Carbon Dioxide 28.4 mEq/L (21.0-31.0) 03/26/17 15:10 Anion Gap 11.7 (7.0-16.0) 03/26/17 15:10 BUN 12 mg/dL (7-25) 03/26/17 15:10 Creatinine 0.6 mg/dL (0.7-1.3) L 03/26/17 15:10 Est GFR ( Amer) > 60.0 ml/min (>90) 03/26/17 15:10 Est GFR (Non-Af Amer) > 60.0 ml/min 03/26/17 15:10 BUN/Creatinine Ratio 20.0 03/26/17 15:10 Glucose 301 mg/dL (70-105) H 03/26/17 15:10 POC Glucose 182 MG/DL (70 - 105) H 03/30/17 16:09 Hemoglobin A1c % 9.8 % (4.0-6.0) H 03/26/17 15:10 Calcium 9.4 mg/dL (8.6-10.3) 03/26/17 15:10 Total Bilirubin 0.6 mg/dL (0.3-1.0) 03/26/17 15:10 AST 16 U/L (13-39) 03/26/17 15:10 ALT 20 U/L (7-52) 03/26/17 15:10 Alkaline Phosphatase 71 U/L (34-104) 03/26/17 15:10 Total Protein 7.6 gm/dL (6.0-8.3) 03/26/17 15:10 Albumin 4.1 gm/dL (4.2-5.5) L 03/26/17 15:10 Globulin 3.5 gm/dL 03/26/17 15:10 Albumin/Globulin Ratio 1.2 (1.0-1.8) 03/26/17 15:10 Triglycerides 205 mg/dL (<150) H 03/26/17 15:10 Cholesterol 155 mg/dL (<200) 03/26/17 15:10 LDL Cholesterol Direct 100 mg/dL (75-193) 03/26/17 15:10 HDL Cholesterol 39 mg/dL (23-92) 03/26/17 15:10 TSH 3.29 uIU/ml (0.34-5.60) 03/26/17 15:10 Urine Source CLEAN C 03/26/17 15:40 Urine Color YELLOW 03/26/17 15:40 Urine Clarity CLEAR (CLEAR) 03/26/17 15:40 Urine pH 7.0 (4.6 - 8.0) 03/26/17 15:40 Ur Specific [place] 1.015 (1.005-1.030) 03/26/17 15:40 Urine Protein NEGATIVE mg/dL (NEGATIVE) 03/26/17 15:40 Urine Glucose (UA) >=1000 mg/dL (NEGATIVE) H 03/26/17 15:40 Urine Ketones TRACE mg/dL (NEGATIVE) 03/26/17 15:40 Urine Blood NEGATIVE (NEGATIVE) 03/26/17 15:40 Urine Nitrate NEGATIVE (NEGATIVE) 03/26/17 15:40 Urine Bilirubin NEGATIVE (NEGATIVE) 03/26/17 15:40 Urine Urobilinogen 4.0 E.U./dL (0.2 - 1.0) H 03/26/17 15:40 Ur Leukocyte Esterase NEGATIVE (NEGATIVE) 03/26/17 15:40 Urine RBC NONE SEEN /hpf (0-5) 03/26/17 15:40 Urine WBC NONE SEEN /hpf (0-5) 03/26/17 15:40 Ur Epithelial Cells NONE SEEN /lpf (FEW) 03/26/17 15:40 Urine Bacteria NONE SEEN /hpf (NONE SEEN) 03/26/17 15:40 Salicylates < 25.0 mg/L (30.0-100.0) L 03/26/17 15:10 Urine Opiates Screen NEGATIVE (NEGATIVE) 03/26/17 15:40 Urine Methadone Screen NEGATIVE (NEGATIVE) 03/26/17 15:40 Acetaminophen < 10.0 ug/mL (10.0-30.0) L 03/26/17 15:10 Ur Barbiturates Screen NEGATIVE (NEGATIVE) 03/26/17 15:40 Valproic Acid 11.6 ug/mL (50.0-100.0) L 03/27/17 08:30 Ur Tricyclics Screen NEGATIVE (NEGATIVE) 03/26/17 15:40 Ur Phencyclidine Scrn NEGATIVE (NEGATIVE) 03/26/17 15:40 Amphetamines Screen NEGATIVE (NEGATIVE) 03/26/17 15:40 U Methamphetamines Scrn NEGATIVE (NEGATIVE) 03/26/17 15:40 U Benzodiazepines Scrn NEGATIVE (NEGATIVE) 03/26/17 15:40 U Cocaine Metab Screen NEGATIVE (NEGATIVE) 03/26/17 15:40 U Cannabinoids Screen NEGATIVE (NEGATIVE) 03/26/17 15:40 Ethyl Alcohol < 10 mg/dL (0-10) 03/26/17 15:10 RPR NONREACTIVE (NONREACTIVE) 03/26/17 15:10 - Physical Exam Vitals and I&O: Vital Signs Temp 97.5 F 03/31/17 06:33 Pulse 79 03/31/17 06:33 Resp 20 03/31/17 06:33 BP 133/79 03/31/17 06:33 Pulse Ox 96 03/31/17 06:33 Intake & Output 03/30/17 03/31/17 03/31/17 18:59 06:59 18:59 Intake Total 1560 Balance 1560 Intake: Oral 1560 Other: # Voids 2 # Bowel Movements 1 Active Medications: Current Medications Acetaminophen (Tylenol) 650 mg PO Q4HR PRN PRN Reason: Pain (Mild) Stop: 05/25/17 18:48 Artificial Tears (Artificial Tears Ophth Soln) 1 drop EACH EYE QID LG Stop: 05/25/17 21:29 Last Admin: 03/31/17 09:49 Dose: Not Given Baclofen (Lioresal) 5 mg PO Q8HR LG Stop: 05/25/17 20:59 Last Admin: 03/31/17 05:27 Dose: 5 mg Cyanocobalamin (Vitamin B12) 1,000 mcg PO DAILY LG Stop: 05/26/17 08:59 Last Admin: 03/31/17 09:48 Dose: Not Given Divalproex Sodium (Depakote Dr) 375 mg PO HS LG PRN Reason: Protocol Stop: 05/25/17 21:59 Last Admin: 03/30/17 21:34 Dose: 375 mg Docusate Sodium (Colace) 250 mg PO DAILY LG Stop: 05/26/17 08:59 Last Admin: 03/31/17 09:48 Dose: Not Given Fluocinonide (Lidex 0.05%) 1 appl TP DAILY LG Stop: 05/26/17 08:59 Last Admin: 03/31/17 09:48 Dose: Not Given Folic Acid (Folate) 1 mg PO DAILY [facility] Stop: 05/26/17 08:59 Last Admin: 03/31/17 09:49 Dose: Not Given Glimepiride (Amaryl) 4 mg PO BID [facility] Stop: 05/26/17 08:59 Last Admin: 03/31/17 09:49 Dose: Not Given Insulin Aspart (Novolog Insulin Sliding Scale) 0 units SUBQ ACHS LG PRN Reason: Protocol Stop: 05/25/17 20:59 Last Admin: 03/31/17 06:56 Dose: Not Given Ketoconazole (Nizoral 2% Cream) 1 appl TP DAILY [facility] Stop: 05/26/17 08:59 Last Admin: 03/31/17 09:49 Dose: Not Given Loratadine (Claritin) 10 mg PO DAILY [facility] Stop: 05/26/17 08:59 Last Admin: 03/31/17 09:49 Dose: Not Given Lorazepam (Ativan) 0.5 mg PO Q4HR PRN; Protocol PRN Reason: Anxiety/Agitation Stop: 05/25/17 21:15 Metformin HCl (Glucophage) 500 mg PO BID [facility] Stop: 05/26/17 08:59 Last Admin: 03/31/17 09:49 Dose: Not Given Methimazole (Tapazole) 5 mg PO DAILY [facility] Stop: 05/26/17 08:59 Last Admin: 03/31/17 09:49 Dose: Not Given Multivitamins/Vitamin C (Theragran) 1 tab PO DAILY [facility] Stop: 05/26/17 08:59 Last Admin: 03/31/17 09:49 Dose: Not Given Quetiapine Fumarate (Seroquel) 50 mg PO TID LG PRN Reason: Protocol Stop: 05/26/17 08:59 Last Admin: 03/31/17 09:50 Dose: Not Given Simvastatin (Zocor) 40 mg PO HS [facility] Stop: 05/26/17 20:59 Last Admin: 03/30/17 21:35 Dose: 40 mg Tramadol HCl (Ultram) 50 mg PO TID PRN PRN Reason: Pain (Moderate) Stop: 05/25/17 18:48 Last Admin: 03/26/17 20:26 Dose: 50 mg Vitamin D (Vitamin D3) 2,000 iu PO DAILY [facility] Stop: 05/26/17 08:59 Last Admin: 03/31/17 09:48 Dose: Not Given Warfarin Sodium (Coumadin Per Pharmacy) 1 ea MC UD LG Stop: 05/26/17 08:59 Warfarin Sodium (Coumadin) 5 mg PO C ONE Stop: 03/31/17 13:01 Zolpidem Tartrate (Ambien) 5 mg PO HS PRN PRN Reason: Insomnia Stop: 05/25/17 21:17 General: No acute distress HEENT: Atraumatic Neck: Supple, JVD Cardiovascular: Regular rate, Normal S1 Assessment/Plan - Problem List Patient Problems: All Active Problems Agitation (Acute) R45.1 Bipolar disease, chronic (Acute) F31.9 Diabetes mellitus (Acute) E11.9 Diabetes mellitus (Acute) E11.9 Hyperglycemia (Acute) R73.9 Hyponatremia (Acute) E87.1 - Plan Plan: as per psych monitor vitals/diet labs will monitor Nutritional Asmnt/Malnutr-PDOC - Dietary Evaluation Malnutrition Findings (Please click <Entered> for more info): Nutritional Asmnt/Malnutrition Start: 03/27/17 15: 36 Text: Status: Complete Freq: Document 03/27/17 16:17 LCHENG (Rec: 03/27/17 16:21 LCHENG [email or web address]) Nutritional Asmnt/Malnutrition Patient General Information Nutritional Screening High Risk Pertinent Medical Hx/Surgical Hx DM, CAD, CHF, CVA/TIA, dyslipidemia, thryroid, arthritis, anemia, schizophrenia, bipolar Subjective Information Pt seen lying in bed working with lunch at time of visit. Pt reported appetite ok, has partial teeth noted, denied chewing or swallowing problem. Pt stated he has been on diabetic medications but missed two does and made blood sugar elevated. Per nurse notes, pt refused taking insulin. Pt denied he has wheat allergy. RN made aware and will talk to MD. Current Diet Order/ Nutrition Support CCHO-60gm, CHRISTIANO Pertinent Medications vitamin B12, colace, folic acid, novolog, glucophage, theragran, vitamin D3, coumadin Pertinent Labs 03/26 na 134, K 4.1, Cl 98, BUN 12, Cr 0.6, Glucose 301, A1c 9.8, Ca 9.4, Alb 4.1 03/27 POC 232 Nutritional Hx/Data Height 1.78 m Height (Calculated Centimeters) 177.8 Current Weight (lbs) 97.522 kg Weight (Calculated Kilograms) 97.5 Weight (Calculated Grams) 02896.4 [place] Body Weight 166 % [place] Body Weight 130 Body Mass Index (BMI) 30.8 GI Symptoms GI Symptoms None Last BM no record Difficult in: None Skin Integrity/Comment: WNL Estimated Nutritional Goals Calories/Kcals/Kg 25-30 Kcals Calculated 8515-9636 Protein g/k-1.2 Protein Calculated 76-91 Fluid: ml 1900-2280ml (1ml/kcal) Nutritional Problem 1. Problem Problem altered nutrition related lab values Etiology hx of DM, pt refusing to take insulin Signs/Symptoms: Glucose 301, A1c 9.8, POC 232 Malnutrition Alert Protein-Calorie Malnutrition N/A Is there a minimum of two criteria No selected? Query Text:Check all the applicable criteria. A minimum of two criteria are recommended for diagnosis of either severe or non-severe malnutrition. Intervention/Recommendation Comments 1. Continue with current diet as ordered. Explained [facility] diet to pt. Pt verbalized understanding and will follow it. 2. Monitor PO intake, wt, labs and skin integrity 3. F/U as moderate risk in 3-5 days, 03/30-04/01 Expected Outcomes/Goals Expected Outcomes/Goals 1. PO intake to meet at least 75% of nutritional needs. 2. Wt stability, skin to remain intact, labs to approach WNL.
--- NOTE | 2017-04-01 02:40 | Progress Notes ---
DATE: 03/31/2017 SUBJECTIVE: Chart reviewed and the patient interviewed. I also discussed the patient's condition with the staff and reviewed records and labs. The patient continued to be severely irritable and agitated. The patient also is still restless and still needs lots of redirections. The patient also is still more agitated, especially when the staff tried to help him with his ADLs. Otherwise, the patient is compliant with taking his medications with no side effects of medications. ASSESSMENT: The patient is still psychotic and needs close monitoring. TREATMENT PLAN: We will continue to monitor his behavior and his condition closely. Also, we will increase Seroquel to 50 mg 3 times a day and we will get Depakote blood level and we will continue to follow up closely. JOB# [id number]
== END 2017-03-31 17:40 | DRG 885 ==
LOC: ER 14:40 → GERO 17:30
PROVIDERS: ADMIT Psychiatry & Neurology Psychiatry; ATTEND Psychiatry & Neurology Psychiatry
DX: F31.9 Bipolar disorder, unspecified (principal); I11.0 Hypertensive heart disease with heart failure; E11.65 Type 2 diabetes mellitus with hyperglycemia; I50.9 Heart failure, unspecified; E87.1 Hypo-osmolality and hyponatremia; E78.5 Hyperlipidemia, unspecified; D64.9 Anemia, unspecified; I25.10 Atherosclerotic heart disease of native coronary artery without angina pectoris; E55.9 Vitamin D deficiency, unspecified; M19.90 Unspecified osteoarthritis, unspecified site; Z83.3 Family history of diabetes mellitus; Z82.49 Family history of ischemic heart disease and other diseases of the circulatory system; Z89.511 Acquired absence of right leg below knee; Z86.73 Personal history of transient ischemic attack (TIA), and cerebral infarction without residual deficits; Z91.018 Allergy to other foods
CPT/HCPCS: 36415-UA; 80053-TC; 80061-TC; 80164-TC; 80307; 80320-TC; 80329-TC; 81001-TC; 82948-90; 83036-90; 84443-TC; 85025-TC; 85610-TC; 85730-TC; 86592-TC; 93005; J1815; Z7610

== ENCOUNTER 2017-10-17 16:54 | Inpatient (IN) | payer MEDICARE, MEDICAID ==
[2017-10-17 18:17] LABS: ALB/GLOB RATIO 1.2 (1.0-1.8); ALBUMIN 3.9 gm/dL (4.2-5.5); ALKALINE PHOSPHATASE 66 U/L (34-104); ANION GAP 11.7 (7.0-16.0); BILIRUBIN,TOTAL 0.4 mg/dL (0.3-1.0); BUN - UREA NITROGEN 9 mg/dL (7-25); CALCIUM SERUM 9.1 mg/dL (8.6-10.3); CARBON DIOXIDE 25.2 mEq/L (21.0-31.0); CHLORIDE 88 mEq/L (98-107); CREATININE - SERUM 0.6 mg/dL (0.7-1.3); GFR AFRICAN-AMERICAN > 60.0 ml/min (>90); GFR NON AFRICAN-AMERICAN > 60.0 ml/min; GLUCOSE 93 mg/dL (70-105); MAGNESIUM 1.7 mg/dL (1.9-2.7); PHOSPHOROUS 3.2 mg/dL (2.5-5.0); POTASSIUM SERUM 4.9 mEq/L (3.5-5.1); SGOT 11 U/L (13-39); SGPT/ALT 12 U/L (7-52); TOTAL PROTEIN,SERUM 7.2 gm/dL (6.0-8.3)
[2017-10-17 18:18] LABS: VALPROIC ACID 29.8 ug/mL (50.0-100.0)
[2017-10-17 18:25] LABS: SODIUM SERUM 120 mEq/L (136-145)
[2017-10-17] MEDS ORDERED: Sodium Chloride 0.9% 1,000 ML IV ONE (18:30)
[2017-10-17 18:31] LABS: HEMATOCRIT 37.8 % (41.0-60); HEMOGLOBIN 12.6 gm/dL (12-16); RED BLOOD COUNT 4.31 Mil/cmm (3.80-5.80)
[2017-10-17 18:32] LABS: % BASOPHILS 0.4 % (0.0-2.0); % EOSINOPHILS 1.8 % (0.0-5.0); % LYMPHOCYTES 27.3 % (20.0-50.0); % MONOCYTES 8.1 % (2.0-10.0); % NEUTROPHILS 62.4 % (40.0-80.0); MEAN CELL VOLUME 87.7 fl (80-99); MEAN CORPUSCULAR HEMOGLOBIN 29.3 pg (27.0-31.0); MEAN CORPUSCULAR HGB CONC 33.5 pg (28.0-36.0); MEAN PLATELET VOLUME 6.2 fl; PLATELET COUNT 408 Th/cmm (150-400); RED CELL DISTRIBUTION WIDTH 13.1 % (11.5-20.0)
[2017-10-17 18:33] LABS: EOSINOPHILE ABSOLUTE 0.1 Th/cmm (0.1-0.4); LYMPHOCYTE ABSOLUTE 1.6 Th/cmm (1.5-3.0); MONOCYTE ABSOLUTE 0.5 Th/cmm (0.3-1.0); NEUTROPHILE ABSOLUTE 3.8 Th/cmm (1.8-8.0)
[2017-10-17] MEDS ORDERED: Maalox 30 mL Cup PO ONE (18:42)
[2017-10-17] MEDS ORDERED: Maalox 30 mL Cup ONE (18:44)
--- NOTE | 2017-10-17 18:55 | ED Physician Chart ---
ED Chief Complaint/HPI - Patient Information Date Seen:: 10/17/17 Time Seen:: 17:05 Chief Complaint:: abnormal labs History of Present Illness:: abnormal labs, sodium level of 123. Allergies:: Allergies Allergy/AdvReac Type Severity Reaction Status Date / Time scallops Allergy Verified 10/17/17 17:25 shrimp Allergy Verified 10/17/17 17:25 wheat Allergy Verified 10/17/17 17:25 Vitals:: Vital Signs - 8 hr 10/17/17 10/17/17 17:04 18:55 Temp 97.8 F HR 89 89 RR 16 16 BP 107/57 126/78 O2 Sat % 99 98 ED Review of Systems - Review of Systems General/Constitutional: No fever, No chills, No weight loss, No weakness, No diaphoresis, No edema, No loss of appetite Skin: No skin lesions, No rash, No bruising Head: No headache, No light-headedness Eyes: No loss of vision, No pain, No diplopia ENT: No earache, No nasal drainage, No sore throat, No tinnitus Neck: No neck pain, No swelling, No thyromegaly, No stiffness, No mass noted Cardio Vascular: No chest pain, No palpitations, No PND, No orthopnea, No edema Pulmonary: No SOB, No cough, No sputum, No wheezing GI: No nausea, No vomiting, No diarrhea, No pain, No melena, No hematochezia, No constipation, No hematemesis G/U: No dysuria, No frequency, No hematuria Musculoskeletal: No bone or joint pain, No back pain, No muscle pain Endocrine: No polyuria, No polydipsia Psychiatric: Prior psych history Hematopoietic: No bruising, No lymphadenopathy Allergic/Immuno: No urticaria, No angioedema Neurological: No syncope, No focal symptoms, No weakness, No paresthesia, No headache, No seizure, No dizziness, No confusion, No vertigo ED Past Medical History - Past Medical History Obtainable: Yes Past Medical History: CVA/TIA Surgical History: other (R BKA from [place]) Family Medical History - Family Member Father History Unknown: Yes Ethnicity: Unknown Living Status: Unknown Hx Family Cancer: No Hx Family Coronary Artery Disease: No Hx Family Congestive Heart Failure: No Hx Family Diabetes: No Hx Family Seizures: No Hx Family HIV: No Hx Family Tuberculosis: No ED Physical Exam - Physical Examination General/Constitutional: Awake, Well-developed, well-nourished, Alert, No distress, GCS 15, Non-toxic appearing, Ambulatory Head: Atraumatic Eyes: Lids, conjuctiva normal, PERRL, EOMI Skin: No rash, No skin lesions, No ecchymosis, Well hydrated, No lymphadenopathy Other Skin comments:: L heel decubitus 4 inch x 3.5 inch in size with eschar. stage I on sacrum. ENMT: External ears, nose nl Neck: Nontender, Full ROM w/o pain, No JVD, No nuchal rigidity, No bruit, No mass, No stridor Other Respiratory comments:: decreased Cardio Vascular: RRR, No murmur, gallop, rubs, NL S1 S2 GI: No tenderness/rebounding/guarding, No organomegaly, No hernia, Normal BS's, Nondistended, No mass/bruits, No McBurney tenderness : No CVA tenderness Extremities: Full ROM Other Extremities comments:: L heel decubitus which measures 4 inches x 3.5 inches in size. Thick eschar present. Neuro/Psych: Alert/oriented, Mood normal ED Labs/Radiology/EKG Results - Lab Results Results: Laboratory Tests 10/17/17 10/17/17 10/17/17 17:45 17:45 17:45 WBC 6.0 RBC 4.31 Hgb 12.6 Hct 37.8 L MCV 87.7 MCH 29.3 MCHC Differential 33.5 RDW 13.1 Plt Count 408 H MPV 6.2 Neutrophils % 62.4 Lymphocytes % 27.3 Monocytes % 8.1 Eosinophils % 1.8 Basophils % 0.4 Sodium 120 L Potassium 4.9 Chloride 88 L Carbon Dioxide 25.2 Anion Gap 11.7 BUN 9 Creatinine 0.6 L Est GFR ( Amer) > 60.0 Est GFR (Non-Af Amer) > 60.0 BUN/Creatinine Ratio 15.0 Glucose 93 Calcium 9.1 Phosphorus 3.2 Magnesium 1.7 L Total Bilirubin 0.4 AST 11 L ALT 12 Alkaline Phosphatase 66 Total Protein 7.2 Albumin 3.9 L Globulin 3.3 Albumin/Globulin Ratio 1.2 Valproic Acid 29.8 L ED Assessment - Assessment General Assessment: patient has eaten dinner and is trying to urinate for us. Assessment/Comments:: I spoke to Dr. Corley on his cell phone at 18:44 p.m. He said that he would come by in 10 minutes to see his patient. Dr. Corley called back to admit the patient at 20:10 p.m. ED Septic Shock - . Is Septic Shock (SBP<90, OR Lactate>4 mmol\L) present?: No - <6hrs of presentation: Vital Signs: Vital Signs - 8 hr 10/17/17 10/17/17 17:04 18:55 Temp 97.8 F HR 89 89 RR 16 16 BP 107/57 126/78 O2 Sat % 99 98 ED Reassessment (Disposition) - Reassessment Reassessment Condition:: Unchanged - Diagnosis Diagnosis:: Hyponatremia to 120 Left heel decubitus Diabetes mellitus Right lower extremity amputation Bipolar disorder Schizophrenia, unspecified Anxiety Disorder, unspecified Insomnia, unspecified - Patient Disposition Discharge/Transfer:: Acute Care w/in this hosp Admitted to:: ICU Condition at Disposition:: Stable
[2017-10-17] MEDS: Sodium Chloride 0.9% 1,000 ML IV SCH (23:43)
[2017-10-17 23:44] LABS: URINE SOURCE CATH
[2017-10-17 23:47] LABS: URINE BILIRUBIN NEGATIVE (NEGATIVE); URINE BLOOD NEGATIVE (NEGATIVE); URINE GLUCOSE (UA) NEGATIVE (NEGATIVE); URINE KETONE NEGATIVE (NEGATIVE); URINE LEUKOCYTE ESTERASE NEGATIVE (NEGATIVE); URINE NITRATE NEGATIVE (NEGATIVE); URINE PH 5.5 (4.6 - 8.0); URINE PROTEIN NEGATIVE (NEGATIVE)
[2017-10-17 23:48] LABS: URINE CLARITY CLEAR (CLEAR); URINE COLOR YELLOW; URINE MICROSCOPIC INDICATED? NO
[2017-10-18 00:02] LABS: AMPHETAMINE URINE NEGATIVE (NEGATIVE); BARBITURATES URINE NEGATIVE (NEGATIVE); BENZODIAZEPINES QUAL URINE NEGATIVE (NEGATIVE); CANNABINOID THC NEGATIVE (NEGATIVE); COCAINE METABOLITE QUAL URINE NEGATIVE (NEGATIVE); METHADONE URINE NEGATIVE (NEGATIVE); METHAMPHETAMINES QUAL URINE NEGATIVE (NEGATIVE); OPIATES (MORPHINE) QUAL. URINE NEGATIVE (NEGATIVE); PHENCYCLIDINE (PCP) URINE NEGATIVE (NEGATIVE); TRICYCLICS (TCA) QUAL. URINE POSITIVE (NEGATIVE)
[2017-10-18 07:21] LABS: INR 3.41 (0.5-1.4); PROTHROMBIN TIME (TEST) 33.5 SECONDS (9.5-11.5)
[2017-10-18 07:26] LABS: % BASOPHILS 0.3 % (0.0-2.0); % EOSINOPHILS 1.4 % (0.0-5.0); % LYMPHOCYTES 16.2 % (20.0-50.0); % MONOCYTES 9.2 % (2.0-10.0); % NEUTROPHILS 72.9 % (40.0-80.0); EOSINOPHILE ABSOLUTE 0.1 Th/cmm (0.1-0.4); HEMATOCRIT 38.4 % (41.0-60); HEMOGLOBIN 12.8 gm/dL (12-16); LYMPHOCYTE ABSOLUTE 1.1 Th/cmm (1.5-3.0); MEAN CELL VOLUME 86.4 fl (80-99); MEAN CORPUSCULAR HEMOGLOBIN 28.9 pg (27.0-31.0); MEAN CORPUSCULAR HGB CONC 33.4 pg (28.0-36.0); MEAN PLATELET VOLUME 7.1 fl; MONOCYTE ABSOLUTE 0.6 Th/cmm (0.3-1.0); PLATELET COUNT 375 Th/cmm (150-400); RED BLOOD COUNT 4.44 Mil/cmm (3.80-5.80); RED CELL DISTRIBUTION WIDTH 13.2 % (11.5-20.0); WHITE BLOOD COUNT 6.8 Th/cmm (4.8-10.8)
[2017-10-18] MEDS: Sodium Chloride 0.9% 1,000 ML IV SCH ×2 (08:30→18:38)
[2017-10-18 08:55] LABS: ANION GAP 13.8 (7.0-16.0); BUN - UREA NITROGEN 7 mg/dL (7-25); CALCIUM SERUM 8.9 mg/dL (8.6-10.3); CARBON DIOXIDE 24.6 mEq/L (21.0-31.0); CHLORIDE 92 mEq/L (98-107); CHOLESTEROL 99 mg/dL (<200); CREATININE - SERUM 0.5 mg/dL (0.7-1.3); GFR AFRICAN-AMERICAN > 60.0 ml/min (>90); GFR NON AFRICAN-AMERICAN > 60.0 ml/min; GLUCOSE 95 mg/dL (70-105); HDL -HIGH DENSITY LIPOPROTEIN 35 mg/dL (23-92); POTASSIUM SERUM 4.4 mEq/L (3.5-5.1); SODIUM SERUM 126 mEq/L (136-145); TRIGLYCERIDES 84 mg/dL (<150)
[2017-10-18] MEDS ORDERED: DOCUSATE SODIUM 250 MG PO SCH (09:00)
[2017-10-18] MEDS: Multivitamin Tab PO SCH (09:30)
[2017-10-18] MEDS: Polyvinyl Alcohol Ophth Soln 15 mL Bottle EACH EYE SCH ×4 (09:31→21:14)
--- NOTE | 2017-10-18 09:36 | Diagnostic Imaging Report ---
Portable chest x-ray Time: 1830 History: Decreased breath sounds Allowing for portable technique the heart size is normal. No focal pulmonary parenchymal processes. No hilar or mediastinal abnormalities. Impression: No acute abnormalities.
[2017-10-18] MEDS: INSULIN ASPART SLIDING SCALE 100 UNITS/ML UNIT SUBQ SCH ×3 (12:00→20:58)
--- NOTE | 2017-10-18 15:10 | History & Physical ---
ADMIT DATE: 10/18/2017 CHIEF COMPLAINT: Abnormal lab results. HISTORY OF PRESENT ILLNESS: This is a 67-year-old male who was admitted from a senior living facility to [facility] Emergency Room due to sodium level of 123. REVIEW OF SYSTEMS: GENERAL: This is a 67-year-old male that appears as stated. Denies weakness. Denies fever. HEENT: Head: Denies headache. Denies dizziness. Eyes: Denies eye pain. Denies blurring of vision. NECK: Denies neck pain. Denies nuchal rigidity. CHEST: Denies chest pain. Denies palpitation. PULMONARY: Denies coughing. Denies shortness of breath. GASTROINTESTINAL: Denies abdominal pain. Denies diarrhea. Denies constipation. MUSCULOSKELETAL: Denies muscle pain. Denies joint pain. SOCIAL HISTORY: The patient lives in a senior living facility prior to hospitalization. Per the patient, smokes about half a pack per day. Denies alcohol or illicit drug use. PAST SURGICAL HISTORY: Unremarkable. PHYSICAL EXAMINATION: VITAL SIGNS: Temperature 96.7, heart rate 93, blood pressure 144/87, respirations 20, 98% on room air. GENERAL: This is a 67-year-old male that appears as stated in no acute distress. HEENT: Head is atraumatic, normocephalic. Bilateral conjunctivae are clear. Bilateral pupils are equally round and reactive. NECK: Supple. No JVD. CARDIOVASCULAR: S1 and S2, without murmur. PULMONARY: Clear to auscultation. GASTROINTESTINAL: Soft and nontender without guarding. Positive bowel sounds. MUSCULOSKELETAL: No clubbing. No cyanosis noted. ASSESSMENT: 1. Hyponatremia. 2. Schizophrenia. 3. Anemia. 4. Hypertension. 5. Osteoarthritis. 6. Hyperlipidemia. PLAN: We will admit the patient to tele unit. We will do medication reconciliation accordingly. Also going to consult with a membership counselor. Treatment plans were discussed with the patient's nurse. Treatment plans were discussed with Dr. Corley. JOB# [id number]
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
[2017-10-19] MEDS: Sodium Chloride 0.9% 1,000 ML IV SCH ×2 (05:01→17:13)
[2017-10-19] MEDS: INSULIN ASPART SLIDING SCALE 100 UNITS/ML UNIT SUBQ SCH ×4 (06:32→21:00)
[2017-10-19 06:41] LABS: % BASOPHILS 0.5 % (0.0-2.0); % EOSINOPHILS 2.5 % (0.0-5.0); % LYMPHOCYTES 27.8 % (20.0-50.0); % MONOCYTES 10.3 % (2.0-10.0); % NEUTROPHILS 58.9 % (40.0-80.0); EOSINOPHILE ABSOLUTE 0.1 Th/cmm (0.1-0.4); HEMATOCRIT 37.7 % (41.0-60); HEMOGLOBIN 12.6 gm/dL (12-16); LYMPHOCYTE ABSOLUTE 1.4 Th/cmm (1.5-3.0); MEAN CELL VOLUME 87.1 fl (80-99); MEAN CORPUSCULAR HEMOGLOBIN 29.1 pg (27.0-31.0); MEAN CORPUSCULAR HGB CONC 33.4 pg (28.0-36.0); MEAN PLATELET VOLUME 6.8 fl; MONOCYTE ABSOLUTE 0.5 Th/cmm (0.3-1.0); NEUTROPHILE ABSOLUTE 2.9 Th/cmm (1.8-8.0); PLATELET COUNT 376 Th/cmm (150-400); RED BLOOD COUNT 4.32 Mil/cmm (3.80-5.80); RED CELL DISTRIBUTION WIDTH 13.2 % (11.5-20.0); WHITE BLOOD COUNT 4.9 Th/cmm (4.8-10.8)
[2017-10-19 06:47] LABS: INR 3.61 (0.5-1.4); PROTHROMBIN TIME (TEST) 35.4 SECONDS (9.5-11.5)
[2017-10-19 06:58] LABS: MAGNESIUM 1.9 mg/dL (1.9-2.7); URIC ACID 4.3 mg/dL (4.4-7.6)
[2017-10-19 07:00] LABS: ALB/GLOB RATIO 1.2 (1.0-1.8); ALBUMIN 3.8 gm/dL (4.2-5.5); ALKALINE PHOSPHATASE 65 U/L (34-104); ANION GAP 10.9 (7.0-16.0); BILIRUBIN,TOTAL 0.4 mg/dL (0.3-1.0); BUN - UREA NITROGEN 7 mg/dL (7-25); CALCIUM SERUM 9.1 mg/dL (8.6-10.3); CARBON DIOXIDE 25.4 mEq/L (21.0-31.0); CHLORIDE 98 mEq/L (98-107); CREATININE - SERUM 0.6 mg/dL (0.7-1.3); GFR AFRICAN-AMERICAN > 60.0 ml/min (>90); GFR NON AFRICAN-AMERICAN > 60.0 ml/min; GLUCOSE 90 mg/dL (70-105); POTASSIUM SERUM 4.3 mEq/L (3.5-5.1); SGOT 10 U/L (13-39); SGPT/ALT 11 U/L (7-52); SODIUM SERUM 130 mEq/L (136-145)
[2017-10-19] MEDS: Multivitamin Tab PO SCH (08:22)
[2017-10-19] MEDS: Polyvinyl Alcohol Ophth Soln 15 mL Bottle EACH EYE SCH ×4 (08:23→21:50)
--- NOTE | 2017-10-19 11:42 | General Progress Note ---
Subjective - Review of Systems Events since last encounter: patient awake alert in no distress Objective - Results Result Diagrams: 10/19/17 05:53 10/19/17 05:53 Recent Labs: Laboratory Last Values WBC 4.9 Th/cmm (4.8-10.8) 10/19/17 05:53 RBC 4.32 Mil/cmm (3.80-5.80) 10/19/17 05:53 Hgb 12.6 gm/dL (12-16) 10/19/17 05:53 Hct 37.7 % (41.0-60) L 10/19/17 05:53 MCV 87.1 fl (80-99) 10/19/17 05:53 MCH 29.1 pg (27.0-31.0) 10/19/17 05:53 MCHC Differential 33.4 pg (28.0-36.0) 10/19/17 05:53 RDW 13.2 % (11.5-20.0) 10/19/17 05:53 Plt Count 376 Th/cmm (150-400) 10/19/17 05:53 MPV 6.8 fl 10/19/17 05:53 Neutrophils % 58.9 % (40.0-80.0) 10/19/17 05:53 Lymphocytes % 27.8 % (20.0-50.0) 10/19/17 05:53 Monocytes % 10.3 % (2.0-10.0) H 10/19/17 05:53 Eosinophils % 2.5 % (0.0-5.0) 10/19/17 05:53 Basophils % 0.5 % (0.0-2.0) 10/19/17 05:53 PT 35.4 SECONDS (9.5-11.5) H 10/19/17 05:53 INR 3.61 (0.5-1.4) H 10/19/17 05:53 PTT (Actin FS) 46.7 SECONDS (26.0-38.0) H 10/18/17 06:02 Sodium 130 mEq/L (136-145) L 10/19/17 05:53 Potassium 4.3 mEq/L (3.5-5.1) 10/19/17 05:53 Chloride 98 mEq/L (98-107) 10/19/17 05:53 Carbon Dioxide 25.4 mEq/L (21.0-31.0) 10/19/17 05:53 Anion Gap 10.9 (7.0-16.0) 10/19/17 05:53 BUN 7 mg/dL (7-25) 10/19/17 05:53 Creatinine 0.6 mg/dL (0.7-1.3) L 10/19/17 05:53 Est GFR ( Amer) > 60.0 ml/min (>90) 10/19/17 05:53 Est GFR (Non-Af Amer) > 60.0 ml/min 10/19/17 05:53 BUN/Creatinine Ratio 11.7 10/19/17 05:53 Glucose 90 mg/dL (70-105) 10/19/17 05:53 POC Glucose 106 MG/DL (70 - 105) H 10/19/17 11:33 Uric Acid 4.3 mg/dL (4.4-7.6) L 10/19/17 05:53 Calcium 9.1 mg/dL (8.6-10.3) 10/19/17 05:53 Phosphorus 3.2 mg/dL (2.5-5.0) 10/17/17 17:45 Magnesium 1.9 mg/dL (1.9-2.7) 10/19/17 05:53 Total Bilirubin 0.4 mg/dL (0.3-1.0) 10/19/17 05:53 AST 10 U/L (13-39) L 10/19/17 05:53 ALT 11 U/L (7-52) 10/19/17 05:53 Alkaline Phosphatase 65 U/L (34-104) 10/19/17 05:53 Total Protein 7.0 gm/dL (6.0-8.3) 10/19/17 05:53 Albumin 3.8 gm/dL (4.2-5.5) L 10/19/17 05:53 Globulin 3.2 gm/dL 10/19/17 05:53 Albumin/Globulin Ratio 1.2 (1.0-1.8) 10/19/17 05:53 Triglycerides 84 mg/dL (<150) 10/18/17 06:02 Cholesterol 99 mg/dL (<200) 10/18/17 06:02 LDL Cholesterol Direct 51 mg/dL (75-193) L 10/18/17 06:02 HDL Cholesterol 35 mg/dL (23-92) 10/18/17 06:02 TSH 2.70 uIU/ml (0.34-5.60) 10/17/17 17:45 Urine Source CATH 10/17/17 23:30 Urine Color YELLOW 10/17/17 23:30 Urine Clarity CLEAR (CLEAR) 10/17/17 23:30 Urine pH 5.5 (4.6 - 8.0) 10/17/17 23:30 Ur Specific [place] 1.015 (1.005-1.030) 10/17/17 23:30 Urine Protein NEGATIVE mg/dL (NEGATIVE) 10/17/17 23:30 Urine Glucose (UA) NEGATIVE mg/dL (NEGATIVE) 10/17/17 23:30 Urine Ketones NEGATIVE mg/dL (NEGATIVE) 10/17/17 23:30 Urine Blood NEGATIVE (NEGATIVE) 10/17/17 23:30 Urine Nitrate NEGATIVE (NEGATIVE) 10/17/17 23:30 Urine Bilirubin NEGATIVE (NEGATIVE) 10/17/17 23:30 Urine Urobilinogen 1.0 E.U./dL (0.2 - 1.0) 10/17/17 23:30 Ur Leukocyte Esterase NEGATIVE (NEGATIVE) 10/17/17 23:30 Ur Random Sodium 59 mmol/L 10/18/17 20:53 Urine Opiates Screen NEGATIVE (NEGATIVE) 10/17/17 23:30 Urine Methadone Screen NEGATIVE (NEGATIVE) 10/17/17 23:30 Ur Barbiturates Screen NEGATIVE (NEGATIVE) 10/17/17 23:30 Valproic Acid 29.8 ug/mL (50.0-100.0) L 10/17/17 17:45 Ur Tricyclics Screen POSITIVE (NEGATIVE) H 10/17/17 23:30 Ur Phencyclidine Scrn NEGATIVE (NEGATIVE) 10/17/17 23:30 Amphetamines Screen NEGATIVE (NEGATIVE) 10/17/17 23:30 U Methamphetamines Scrn NEGATIVE (NEGATIVE) 10/17/17 23:30 U Benzodiazepines Scrn NEGATIVE (NEGATIVE) 10/17/17 23:30 U Cocaine Metab Screen NEGATIVE (NEGATIVE) 10/17/17 23:30 U Cannabinoids Screen NEGATIVE (NEGATIVE) 10/17/17 23:30 - Physical Exam Vitals and I&O: Vital Signs Temp 97.8 F 10/19/17 09:24 Pulse 86 10/19/17 09:24 Resp 20 10/19/17 09:24 BP 145/82 10/19/17 09:24 Pulse Ox 95 10/19/17 09:24 Intake & Output 10/18/17 10/19/17 10/19/17 18:59 06:59 18:59 Intake Total 2200 1120 Output Total 1675 900 Balance 525 220 Weight (lbs) 86.183 kg 87.543 kg Intake: Intake, IV Amount 1000 1000 Sodium Chloride 0.9% 1, 1000 1000 000 ml @ 100 mls/hr IV . Q10H [facility] Rx#:[id number] Oral 1200 120 Output: Urine 1675 900 Other: # Bowel Movements 0 Stool Characteristics Soft Soft Formed Formed Weight Source Bedscale Bedscale Active Medications: Current Medications Acetaminophen (Tylenol) 650 mg PO Q4HR PRN PRN Reason: Pain (Mild) Stop: 12/17/17 07:49 Artificial Tears (Artificial Tears Ophth Soln) 1 drop EACH EYE QID [facility] Stop: 12/17/17 08:59 Last Admin: 10/19/17 08:23 Dose: 1 drop Baclofen (Lioresal) 5 mg PO Q8HR [facility] Stop: 12/17/17 12:59 Last Admin: 10/19/17 05:01 Dose: 5 mg Cyanocobalamin (Vitamin B12) 1,000 mcg PO DAILY [facility] Stop: 12/17/17 08:59 Last Admin: 10/19/17 08:22 Dose: 1,000 mcg Divalproex Sodium (Depakote Dr) 375 mg PO [facility]; Protocol Stop: 12/17/17 20:59 Last Admin: 10/18/17 21:14 Dose: 375 mg Docusate Sodium (Colace) 250 mg PO DAILY [facility] Stop: 12/17/17 08:59 Last Admin: 10/19/17 08:23 Dose: 250 mg Fluocinonide (Lidex 0.05%) 1 appl TP DAILY [facility] Stop: 12/18/17 08:59 Last Admin: 10/19/17 08:23 Dose: 1 appl Folic Acid (Folate) 1 mg PO DAILY [facility] Stop: 12/17/17 08:59 Last Admin: 10/19/17 08:22 Dose: 1 mg Glimepiride (Amaryl) 4 mg PO BID [facility] Stop: 12/17/17 08:59 Last Admin: 10/19/17 08:22 Dose: 4 mg Sodium Chloride (Nacl 0.9%) 1,000 mls @ 100 mls/hr IV .Q10H [facility] Stop: 12/16/17 21:59 Last Admin: 10/19/17 05:01 Dose: 100 mls/hr Insulin Aspart (Novolog Insulin Sliding Scale) 0 units SUBQ ACHS [facility]; Protocol Stop: 12/17/17 11:29 Last Admin: 10/19/17 11:35 Dose: Not Given Ketoconazole (Nizoral 2% Cream) 1 appl TP DAILY [facility] Stop: 12/17/17 08:59 Loratadine (Claritin) 10 mg PO DAILY [facility] Stop: 12/17/17 08:59 Last Admin: 10/19/17 08:22 Dose: 10 mg Lorazepam (Ativan) 0.5 mg PO Q4HR PRN; Protocol PRN Reason: Anxiety/Agitation Stop: 12/17/17 07:49 Last Admin: 10/18/17 09:31 Dose: 0.5 mg Metformin HCl (Glucophage) 500 mg PO BID [facility] Stop: 12/17/17 08:59 Last Admin: 10/19/17 08:22 Dose: 500 mg Methimazole (Tapazole) 5 mg PO DAILY [facility] [place] Stop: 12/17/17 08:59 Last Admin: 10/19/17 08:22 Dose: 5 mg Multivitamins/Vitamin C (Theragran) 1 tab PO DAILY [facility] [place] Stop: 12/17/17 08:59 Last Admin: 10/19/17 08:22 Dose: 1 tab Quetiapine Fumarate (Seroquel) 50 mg PO TID [facility] [place]; Protocol Stop: 12/17/17 20:59 Last Admin: 10/19/17 08:22 Dose: 50 mg Simvastatin (Zocor) 40 mg PO HS [facility]; Protocol Stop: 12/17/17 20:59 Last Admin: 10/18/17 21:14 Dose: 40 mg Tramadol HCl (Ultram) 50 mg PO TID PRN PRN Reason: Pain (Moderate) Stop: 12/17/17 07:49 Warfarin Sodium (Coumadin Per Pharmacy) 1 [facility]; Protocol Stop: 12/17/17 08:59 Zolpidem Tartrate (Ambien) 5 mg PO HS PRN PRN Reason: Insomnia Stop: 12/17/17 07:49
--- NOTE | 2017-10-19 13:34 | General Progress Note ---
Subjective - Review of Systems Service Date: 10/19/17 Subjective: sleeping, comfortable Objective - Results Result Diagrams: 10/19/17 05:53 10/19/17 05:53 Recent Labs: Laboratory Last Values WBC 4.9 Th/cmm (4.8-10.8) 10/19/17 05:53 RBC 4.32 Mil/cmm (3.80-5.80) 10/19/17 05:53 Hgb 12.6 gm/dL (12-16) 10/19/17 05:53 Hct 37.7 % (41.0-60) L 10/19/17 05:53 MCV 87.1 fl (80-99) 10/19/17 05:53 MCH 29.1 pg (27.0-31.0) 10/19/17 05:53 MCHC Differential 33.4 pg (28.0-36.0) 10/19/17 05:53 RDW 13.2 % (11.5-20.0) 10/19/17 05:53 Plt Count 376 Th/cmm (150-400) 10/19/17 05:53 MPV 6.8 fl 10/19/17 05:53 Neutrophils % 58.9 % (40.0-80.0) 10/19/17 05:53 Lymphocytes % 27.8 % (20.0-50.0) 10/19/17 05:53 Monocytes % 10.3 % (2.0-10.0) H 10/19/17 05:53 Eosinophils % 2.5 % (0.0-5.0) 10/19/17 05:53 Basophils % 0.5 % (0.0-2.0) 10/19/17 05:53 PT 35.4 SECONDS (9.5-11.5) H 10/19/17 05:53 INR 3.61 (0.5-1.4) H 10/19/17 05:53 PTT (Actin FS) 46.7 SECONDS (26.0-38.0) H 10/18/17 06:02 Sodium 130 mEq/L (136-145) L 10/19/17 05:53 Potassium 4.3 mEq/L (3.5-5.1) 10/19/17 05:53 Chloride 98 mEq/L (98-107) 10/19/17 05:53 Carbon Dioxide 25.4 mEq/L (21.0-31.0) 10/19/17 05:53 Anion Gap 10.9 (7.0-16.0) 10/19/17 05:53 BUN 7 mg/dL (7-25) 10/19/17 05:53 Creatinine 0.6 mg/dL (0.7-1.3) L 10/19/17 05:53 Est GFR ( Amer) > 60.0 ml/min (>90) 10/19/17 05:53 Est GFR (Non-Af Amer) > 60.0 ml/min 10/19/17 05:53 BUN/Creatinine Ratio 11.7 10/19/17 05:53 Glucose 90 mg/dL (70-105) 10/19/17 05:53 POC Glucose 106 MG/DL (70 - 105) H 10/19/17 11:33 Uric Acid 4.3 mg/dL (4.4-7.6) L 10/19/17 05:53 Calcium 9.1 mg/dL (8.6-10.3) 10/19/17 05:53 Phosphorus 3.2 mg/dL (2.5-5.0) 10/17/17 17:45 Magnesium 1.9 mg/dL (1.9-2.7) 10/19/17 05:53 Total Bilirubin 0.4 mg/dL (0.3-1.0) 10/19/17 05:53 AST 10 U/L (13-39) L 10/19/17 05:53 ALT 11 U/L (7-52) 10/19/17 05:53 Alkaline Phosphatase 65 U/L (34-104) 10/19/17 05:53 Total Protein 7.0 gm/dL (6.0-8.3) 10/19/17 05:53 Albumin 3.8 gm/dL (4.2-5.5) L 10/19/17 05:53 Globulin 3.2 gm/dL 10/19/17 05:53 Albumin/Globulin Ratio 1.2 (1.0-1.8) 10/19/17 05:53 Triglycerides 84 mg/dL (<150) 10/18/17 06:02 Cholesterol 99 mg/dL (<200) 10/18/17 06:02 LDL Cholesterol Direct 51 mg/dL (75-193) L 10/18/17 06:02 HDL Cholesterol 35 mg/dL (23-92) 10/18/17 06:02 TSH 2.70 uIU/ml (0.34-5.60) 10/17/17 17:45 Urine Source CATH 10/17/17 23:30 Urine Color YELLOW 10/17/17 23:30 Urine Clarity CLEAR (CLEAR) 10/17/17 23:30 Urine pH 5.5 (4.6 - 8.0) 10/17/17 23:30 Ur Specific [place] 1.015 (1.005-1.030) 10/17/17 23:30 Urine Protein NEGATIVE mg/dL (NEGATIVE) 10/17/17 23:30 Urine Glucose (UA) NEGATIVE mg/dL (NEGATIVE) 10/17/17 23:30 Urine Ketones NEGATIVE mg/dL (NEGATIVE) 10/17/17 23:30 Urine Blood NEGATIVE (NEGATIVE) 10/17/17 23:30 Urine Nitrate NEGATIVE (NEGATIVE) 10/17/17 23:30 Urine Bilirubin NEGATIVE (NEGATIVE) 10/17/17 23:30 Urine Urobilinogen 1.0 E.U./dL (0.2 - 1.0) 10/17/17 23:30 Ur Leukocyte Esterase NEGATIVE (NEGATIVE) 10/17/17 23:30 Ur Random Sodium 59 mmol/L 10/18/17 20:53 Urine Opiates Screen NEGATIVE (NEGATIVE) 10/17/17 23:30 Urine Methadone Screen NEGATIVE (NEGATIVE) 10/17/17 23:30 Ur Barbiturates Screen NEGATIVE (NEGATIVE) 10/17/17 23:30 Valproic Acid 29.8 ug/mL (50.0-100.0) L 10/17/17 17:45 Ur Tricyclics Screen POSITIVE (NEGATIVE) H 10/17/17 23:30 Ur Phencyclidine Scrn NEGATIVE (NEGATIVE) 10/17/17 23:30 Amphetamines Screen NEGATIVE (NEGATIVE) 10/17/17 23:30 U Methamphetamines Scrn NEGATIVE (NEGATIVE) 10/17/17 23:30 U Benzodiazepines Scrn NEGATIVE (NEGATIVE) 10/17/17 23:30 U Cocaine Metab Screen NEGATIVE (NEGATIVE) 10/17/17 23:30 U Cannabinoids Screen NEGATIVE (NEGATIVE) 10/17/17 23:30 - Physical Exam Vitals and I&O: Vital Signs Temp 97.7 F 10/19/17 12:47 Pulse 81 10/19/17 12:47 Resp 18 10/19/17 12:47 BP 152/78 10/19/17 12:47 Pulse Ox 99 10/19/17 12:47 Intake & Output 10/18/17 10/19/17 10/19/17 18:59 06:59 18:59 Intake Total 2200 1120 Output Total 1675 900 Balance 525 220 Weight (lbs) 86.183 kg 87.543 kg Intake: Intake, IV Amount 1000 1000 Sodium Chloride 0.9% 1, 1000 1000 000 ml @ 100 mls/hr IV . Q10H [facility] Rx#:[id number] Oral 1200 120 Output: Urine 1675 900 Other: # Bowel Movements 0 Stool Characteristics Soft Soft Formed Formed Weight Source Bedscale Bedscale Active Medications: Current Medications Acetaminophen (Tylenol) 650 mg PO Q4HR PRN PRN Reason: Pain (Mild) Stop: 12/17/17 07:49 Artificial Tears (Artificial Tears Ophth Soln) 1 drop EACH EYE QID [facility] Stop: 12/17/17 08:59 Last Admin: 10/19/17 13:14 Dose: 1 drop Baclofen (Lioresal) 5 mg PO Q8HR [facility] Stop: 12/17/17 12:59 Last Admin: 10/19/17 13:14 Dose: 5 mg Cyanocobalamin (Vitamin B12) 1,000 mcg PO DAILY [facility] Stop: 12/17/17 08:59 Last Admin: 10/19/17 08:22 Dose: 1,000 mcg Divalproex Sodium (Depakote Dr) 375 mg PO [facility]; Protocol Stop: 12/17/17 20:59 Last Admin: 10/18/17 21:14 Dose: 375 mg Docusate Sodium (Colace) 250 mg PO DAILY [facility] Stop: 12/17/17 08:59 Last Admin: 10/19/17 08:23 Dose: 250 mg Fluocinonide (Lidex 0.05%) 1 appl TP DAILY [facility] Stop: 12/18/17 08:59 Last Admin: 10/19/17 08:23 Dose: 1 appl Folic Acid (Folate) 1 mg PO DAILY [facility] Stop: 12/17/17 08:59 Last Admin: 10/19/17 08:22 Dose: 1 mg Glimepiride (Amaryl) 4 mg PO BID [facility] Stop: 12/17/17 08:59 Last Admin: 10/19/17 08:22 Dose: 4 mg Sodium Chloride (Nacl 0.9%) 1,000 mls @ 100 mls/hr IV .Q10H [facility] Stop: 12/16/17 21:59 Last Admin: 10/19/17 05:01 Dose: 100 mls/hr Insulin Aspart (Novolog Insulin Sliding Scale) 0 units SUBQ ACHS [facility]; Protocol Stop: 12/17/17 11:29 Last Admin: 10/19/17 11:35 Dose: Not Given Ketoconazole (Nizoral 2% Cream) 1 appl TP DAILY [facility] Stop: 12/17/17 08:59 Loratadine (Claritin) 10 mg PO DAILY [facility] Stop: 12/17/17 08:59 Last Admin: 10/19/17 08:22 Dose: 10 mg Lorazepam (Ativan) 0.5 mg PO Q4HR PRN; Protocol PRN Reason: Anxiety/Agitation Stop: 12/17/17 07:49 Last Admin: 10/18/17 09:31 Dose: 0.5 mg Metformin HCl (Glucophage) 500 mg PO BID [facility] Stop: 12/17/17 08:59 Last Admin: 10/19/17 08:22 Dose: 500 mg Methimazole (Tapazole) 5 mg PO DAILY [facility] Stop: 12/17/17 08:59 Last Admin: 10/19/17 08:22 Dose: 5 mg Multivitamins/Vitamin C (Theragran) 1 tab PO DAILY [facility] Stop: 12/17/17 08:59 Last Admin: 10/19/17 08:22 Dose: 1 tab Quetiapine Fumarate (Seroquel) 50 mg PO TID [facility]; Protocol Stop: 12/17/17 20:59 Last Admin: 10/19/17 13:14 Dose: 50 mg Simvastatin (Zocor) 40 mg PO HS [facility]; Protocol Stop: 12/17/17 20:59 Last Admin: 10/18/17 21:14 Dose: 40 mg Tramadol HCl (Ultram) 50 mg PO TID PRN PRN Reason: Pain (Moderate) Stop: 12/17/17 07:49 Warfarin Sodium (Coumadin Per Pharmacy) 1 [facility]; Protocol Stop: 12/17/17 08:59 Zolpidem Tartrate (Ambien) 5 mg PO HS PRN PRN Reason: Insomnia Stop: 12/17/17 07:49 General: No acute distress HEENT: Atraumatic, EOMI, Mucous membr. 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) Neurological: Sensation intact Skin: no Rash Psych/Mental Status: Mood NL Other physical findings: right BKA Assessment/Plan - Assessment Assessment: Hyponatremia Schizo/bipolar Anemia of CD Ess Htn DJD Dyslipidemia - Plan Plan: Lab - Result Diagrams 10/19/17 05:53 10/19/17 05:53 Current Medications Acetaminophen (Tylenol) 650 mg PO Q4HR PRN PRN Reason: Pain (Mild) Stop: 12/17/17 07:49 Artificial Tears (Artificial Tears Ophth Soln) 1 drop EACH EYE QID [facility] Stop: 12/17/17 08:59 Last Admin: 10/19/17 13:14 Dose: 1 drop Baclofen (Lioresal) 5 mg PO Q8HR [facility] Stop: 12/17/17 12:59 Last Admin: 10/19/17 13:14 Dose: 5 mg Cyanocobalamin (Vitamin B12) 1,000 mcg PO DAILY [facility] Stop: 12/17/17 08:59 Last Admin: 10/19/17 08:22 Dose: 1,000 mcg Divalproex Sodium (Depakote Dr) 375 mg PO HS [facility]; Protocol Stop: 12/17/17 20:59 Last Admin: 10/18/17 21:14 Dose: 375 mg Docusate Sodium (Colace) 250 mg PO DAILY [facility] Stop: 12/17/17 08:59 Last Admin: 10/19/17 08:23 Dose: 250 mg Fluocinonide (Lidex 0.05%) 1 appl TP DAILY [facility] Stop: 12/18/17 08:59 Last Admin: 10/19/17 08:23 Dose: 1 appl Folic Acid (Folate) 1 mg PO DAILY [facility] Stop: 12/17/17 08:59 Last Admin: 10/19/17 08:22 Dose: 1 mg Glimepiride (Amaryl) 4 mg PO BID [facility] Stop: 12/17/17 08:59 Last Admin: 10/19/17 08:22 Dose: 4 mg Sodium Chloride (Nacl 0.9%) 1,000 mls @ 100 mls/hr IV .Q10H [facility] Stop: 12/16/17 21:59 Last Admin: 10/19/17 05:01 Dose: 100 mls/hr Insulin Aspart (Novolog Insulin Sliding Scale) 0 units SUBQ ACHS [facility]; Protocol Stop: 12/17/17 11:29 Last Admin: 10/19/17 11:35 Dose: Not Given Ketoconazole (Nizoral 2% Cream) 1 appl TP DAILY [facility] Stop: 12/17/17 08:59 Loratadine (Claritin) 10 mg PO DAILY [facility] Stop: 12/17/17 08:59 Last Admin: 10/19/17 08:22 Dose: 10 mg Lorazepam (Ativan) 0.5 mg PO Q4HR PRN; Protocol PRN Reason: Anxiety/Agitation Stop: 12/17/17 07:49 Last Admin: 10/18/17 09:31 Dose: 0.5 mg Metformin HCl (Glucophage) 500 mg PO BID [facility] Stop: 12/17/17 08:59 Last Admin: 10/19/17 08:22 Dose: 500 mg Methimazole (Tapazole) 5 mg PO DAILY [facility] Stop: 12/17/17 08:59 Last Admin: 10/19/17 08:22 Dose: 5 mg Multivitamins/Vitamin C (Theragran) 1 tab PO DAILY [facility] Stop: 12/17/17 08:59 Last Admin: 10/19/17 08:22 Dose: 1 tab Quetiapine Fumarate (Seroquel) 50 mg PO TID [facility]; Protocol Stop: 12/17/17 20:59 Last Admin: 10/19/17 13:14 Dose: 50 mg Simvastatin (Zocor) 40 mg PO HS [facility]; Protocol Stop: 12/17/17 20:59 Last Admin: 10/18/17 21:14 Dose: 40 mg Tramadol HCl (Ultram) 50 mg PO TID PRN PRN Reason: Pain (Moderate) Stop: 12/17/17 07:49 Warfarin Sodium (Coumadin Per Pharmacy) 1 ea [facility]; Protocol Stop: 12/17/17 08:59 Zolpidem Tartrate (Ambien) 5 mg PO HS PRN PRN Reason: Insomnia Stop: 12/17/17 07:49 Lab - Result Diagrams 10/19/17 05:53 10/19/17 05:53 Na up to 130 continue NS f/u electrolytes
[2017-10-19] MEDS ORDERED: Magnesium Hydroxide (MOM) 30 mL UDC PO ONE (21:00)
[2017-10-20] MEDS: Sodium Chloride 0.9% 1,000 ML IV SCH ×2 (01:00→13:28)
[2017-10-20 05:23] LABS: BUN - UREA NITROGEN 10 mg/dL (7-25); CALCIUM SERUM 8.8 mg/dL (8.6-10.3); CARBON DIOXIDE 25.3 mEq/L (21.0-31.0); CHLORIDE 101 mEq/L (98-107); CREATININE - SERUM 0.5 mg/dL (0.7-1.3); GFR AFRICAN-AMERICAN > 60.0 ml/min (>90); GFR NON AFRICAN-AMERICAN > 60.0 ml/min; GLUCOSE 86 mg/dL (70-105); POTASSIUM SERUM 4.3 mEq/L (3.5-5.1); SODIUM SERUM 131 mEq/L (136-145)
[2017-10-20 05:32] LABS: INR 3.04 (0.5-1.4); PROTHROMBIN TIME (TEST) 29.9 SECONDS (9.5-11.5)
[2017-10-20] MEDS: INSULIN ASPART SLIDING SCALE 100 UNITS/ML UNIT SUBQ SCH ×3 (07:33→16:39)
[2017-10-20] MEDS: Polyvinyl Alcohol Ophth Soln 15 mL Bottle EACH EYE SCH ×3 (08:50→16:39)
[2017-10-20] MEDS: Multivitamin Tab PO SCH (08:51)
--- NOTE | 2017-10-20 14:14 | General Progress Note ---
Subjective - Review of Systems Service Date: 10/20/17 Subjective: sleeping, comfortable Objective - Results Result Diagrams: 10/19/17 05:53 10/20/17 04:10 Recent Labs: Laboratory Last Values WBC 4.9 Th/cmm (4.8-10.8) 10/19/17 05:53 RBC 4.32 Mil/cmm (3.80-5.80) 10/19/17 05:53 Hgb 12.6 gm/dL (12-16) 10/19/17 05:53 Hct 37.7 % (41.0-60) L 10/19/17 05:53 MCV 87.1 fl (80-99) 10/19/17 05:53 MCH 29.1 pg (27.0-31.0) 10/19/17 05:53 MCHC Differential 33.4 pg (28.0-36.0) 10/19/17 05:53 RDW 13.2 % (11.5-20.0) 10/19/17 05:53 Plt Count 376 Th/cmm (150-400) 10/19/17 05:53 MPV 6.8 fl 10/19/17 05:53 Neutrophils % 58.9 % (40.0-80.0) 10/19/17 05:53 Lymphocytes % 27.8 % (20.0-50.0) 10/19/17 05:53 Monocytes % 10.3 % (2.0-10.0) H 10/19/17 05:53 Eosinophils % 2.5 % (0.0-5.0) 10/19/17 05:53 Basophils % 0.5 % (0.0-2.0) 10/19/17 05:53 PT 29.9 SECONDS (9.5-11.5) H 10/20/17 04:10 INR 3.04 (0.5-1.4) H 10/20/17 04:10 PTT (Actin FS) 46.7 SECONDS (26.0-38.0) H 10/18/17 06:02 Sodium 131 mEq/L (136-145) L 10/20/17 04:10 Potassium 4.3 mEq/L (3.5-5.1) 10/20/17 04:10 Chloride 101 mEq/L (98-107) 10/20/17 04:10 Carbon Dioxide 25.3 mEq/L (21.0-31.0) 10/20/17 04:10 Anion Gap 9.0 (7.0-16.0) 10/20/17 04:10 BUN 10 mg/dL (7-25) 10/20/17 04:10 Creatinine 0.5 mg/dL (0.7-1.3) L 10/20/17 04:10 Est GFR ( Amer) > 60.0 ml/min (>90) 10/20/17 04:10 Est GFR (Non-Af Amer) > 60.0 ml/min 10/20/17 04:10 BUN/Creatinine Ratio 20.0 10/20/17 04:10 Glucose 86 mg/dL (70-105) 10/20/17 04:10 POC Glucose 165 MG/DL (70 - 105) H 10/20/17 11:45 Uric Acid 4.3 mg/dL (4.4-7.6) L 10/19/17 05:53 Calcium 8.8 mg/dL (8.6-10.3) 10/20/17 04:10 Phosphorus 3.2 mg/dL (2.5-5.0) 10/17/17 17:45 Magnesium 1.9 mg/dL (1.9-2.7) 10/19/17 05:53 Total Bilirubin 0.4 mg/dL (0.3-1.0) 10/19/17 05:53 AST 10 U/L (13-39) L 10/19/17 05:53 ALT 11 U/L (7-52) 10/19/17 05:53 Alkaline Phosphatase 65 U/L (34-104) 10/19/17 05:53 Total Protein 7.0 gm/dL (6.0-8.3) 10/19/17 05:53 Albumin 3.8 gm/dL (4.2-5.5) L 10/19/17 05:53 Globulin 3.2 gm/dL 10/19/17 05:53 Albumin/Globulin Ratio 1.2 (1.0-1.8) 10/19/17 05:53 Triglycerides 84 mg/dL (<150) 10/18/17 06:02 Cholesterol 99 mg/dL (<200) 10/18/17 06:02 LDL Cholesterol Direct 51 mg/dL (75-193) L 10/18/17 06:02 HDL Cholesterol 35 mg/dL (23-92) 10/18/17 06:02 TSH 2.70 uIU/ml (0.34-5.60) 10/17/17 17:45 Urine Source CATH 10/17/17 23:30 Urine Color YELLOW 10/17/17 23:30 Urine Clarity CLEAR (CLEAR) 10/17/17 23:30 Urine pH 5.5 (4.6 - 8.0) 10/17/17 23:30 Ur Specific [place] 1.015 (1.005-1.030) 10/17/17 23:30 Urine Protein NEGATIVE mg/dL (NEGATIVE) 10/17/17 23:30 Urine Glucose (UA) NEGATIVE mg/dL (NEGATIVE) 10/17/17 23:30 Urine Ketones NEGATIVE mg/dL (NEGATIVE) 10/17/17 23:30 Urine Blood NEGATIVE (NEGATIVE) 10/17/17 23:30 Urine Nitrate NEGATIVE (NEGATIVE) 10/17/17 23:30 Urine Bilirubin NEGATIVE (NEGATIVE) 10/17/17 23:30 Urine Urobilinogen 1.0 E.U./dL (0.2 - 1.0) 10/17/17 23:30 Ur Leukocyte Esterase NEGATIVE (NEGATIVE) 10/17/17 23:30 Ur Random Sodium 59 mmol/L 10/18/17 20:53 Urine Opiates Screen NEGATIVE (NEGATIVE) 10/17/17 23:30 Urine Methadone Screen NEGATIVE (NEGATIVE) 10/17/17 23:30 Ur Barbiturates Screen NEGATIVE (NEGATIVE) 10/17/17 23:30 Valproic Acid 29.8 ug/mL (50.0-100.0) L 10/17/17 17:45 Ur Tricyclics Screen POSITIVE (NEGATIVE) H 10/17/17 23:30 Ur Phencyclidine Scrn NEGATIVE (NEGATIVE) 10/17/17 23:30 Amphetamines Screen NEGATIVE (NEGATIVE) 10/17/17 23:30 U Methamphetamines Scrn NEGATIVE (NEGATIVE) 10/17/17 23:30 U Benzodiazepines Scrn NEGATIVE (NEGATIVE) 10/17/17 23:30 U Cocaine Metab Screen NEGATIVE (NEGATIVE) 10/17/17 23:30 U Cannabinoids Screen NEGATIVE (NEGATIVE) 10/17/17 23:30 - Physical Exam Vitals and I&O: Vital Signs Temp 97.0 F 10/20/17 08:09 Pulse 79 10/20/17 08:09 Resp 18 10/20/17 11:51 BP 142/70 10/20/17 08:09 Pulse Ox 98 10/20/17 08:09 Intake & Output 10/19/17 10/20/17 10/20/17 18:59 06:59 18:59 Intake Total 1600 1278.333 500 Output Total 1210 600 Balance 390 678.333 500 Weight (lbs) 87.543 kg 87.226 kg Intake: Intake, IV Amount 1000 1278.333 500 Sodium Chloride 0.9% 1, 1000 1278.333 500 000 ml @ 100 mls/hr IV . Q10H [facility] Rx#:[id number] Oral 600 Output: Urine 1210 600 Other: # Bowel Movements 0 0 Weight Source Bedscale Bedscale Active Medications: Current Medications Acetaminophen (Tylenol) 650 mg PO Q4HR PRN PRN Reason: Pain (Mild) Stop: 12/17/17 07:49 Last Admin: 10/20/17 13:31 Dose: 650 mg Artificial Tears (Artificial Tears Ophth Soln) 1 drop EACH EYE QID [facility] Stop: 12/17/17 08:59 Last Admin: 10/20/17 13:32 Dose: 1 drop Baclofen (Lioresal) 5 mg PO Q8HR [facility] Stop: 12/17/17 12:59 Last Admin: 10/20/17 13:28 Dose: 5 mg Cyanocobalamin (Vitamin B12) 1,000 mcg PO DAILY [facility] Stop: 12/17/17 08:59 Last Admin: 10/20/17 08:50 Dose: 1,000 mcg Divalproex Sodium (Depakote Dr) 375 mg PO HS [facility]; Protocol Stop: 12/17/17 20:59 Last Admin: 10/19/17 20:14 Dose: 375 mg Docusate Sodium (Colace) 250 mg PO DAILY [facility] Stop: 12/17/17 08:59 Last Admin: 10/20/17 08:50 Dose: 250 mg Fluocinonide (Lidex 0.05%) 1 appl TP DAILY [facility] Stop: 12/18/17 08:59 Last Admin: 10/20/17 08:50 Dose: 1 appl Folic Acid (Folate) 1 mg PO DAILY [facility] Stop: 12/17/17 08:59 Last Admin: 10/20/17 08:51 Dose: 1 mg Glimepiride (Amaryl) 4 mg PO BID [facility] Stop: 12/17/17 08:59 Last Admin: 10/20/17 08:50 Dose: 4 mg Sodium Chloride (Nacl 0.9%) 1,000 mls @ 100 mls/hr IV .Q10H [facility] Stop: 12/16/17 21:59 Last Admin: 10/20/17 13:28 Dose: 100 mls/hr Insulin Aspart (Novolog Insulin Sliding Scale) 0 units SUBQ ACHS [facility]; Protocol Stop: 12/17/17 11:29 Last Admin: 10/20/17 13:23 Dose: Not Given Ketoconazole (Nizoral 2% Cream) 1 appl TP DAILY [facility] Stop: 12/17/17 08:59 Loratadine (Claritin) 10 mg PO DAILY [facility] Stop: 12/17/17 08:59 Last Admin: 10/20/17 08:51 Dose: 10 mg Lorazepam (Ativan) 0.5 mg PO Q4HR PRN; Protocol PRN Reason: Anxiety/Agitation Stop: 12/17/17 07:49 Last Admin: 10/18/17 09:31 Dose: 0.5 mg Metformin HCl (Glucophage) 500 mg PO BID [facility] Stop: 12/17/17 08:59 Last Admin: 10/20/17 08:50 Dose: 500 mg Methimazole (Tapazole) 5 mg PO DAILY [facility] Stop: 12/17/17 08:59 Last Admin: 10/20/17 08:50 Dose: 5 mg Multivitamins/Vitamin C (Theragran) 1 tab PO DAILY [facility] Stop: 12/17/17 08:59 Last Admin: 10/20/17 08:51 Dose: 1 tab Quetiapine Fumarate (Seroquel) 50 mg PO TID [facility]; Protocol Stop: 12/17/17 20:59 Last Admin: 10/20/17 13:31 Dose: 50 mg Simvastatin (Zocor) 40 mg PO HS [facility]; Protocol Stop: 12/17/17 20:59 Last Admin: 10/19/17 21:49 Dose: 40 mg Tramadol HCl (Ultram) 50 mg PO TID PRN PRN Reason: Pain (Moderate) Stop: 12/17/17 07:49 Last Admin: 08/12/18 20:14 Dose: 50 mg Warfarin Sodium (Coumadin Per Pharmacy) 1 ea QAM [facility]; Protocol Stop: 12/17/17 08:59 Zolpidem Tartrate (Ambien) 5 mg PO HS PRN PRN Reason: Insomnia Stop: 12/17/17 07:49 General: Alert, No acute distress HEENT: Atraumatic, EOMI, Mucous membr. 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) Neurological: Sensation intact Skin: no Rash Psych/Mental Status: Mood NL Assessment/Plan - Assessment Assessment: Hyponatremia Schizo/bipolar Anemia of CD Ess Htn DJD Dyslipidemia - Plan Plan: Lab - Result Diagrams 10/19/17 05:53 10/19/17 05:53 Current Medications Acetaminophen (Tylenol) 650 mg PO Q4HR PRN PRN Reason: Pain (Mild) Stop: 12/17/17 07:49 Artificial Tears (Artificial Tears Ophth Soln) 1 drop EACH EYE QID [facility] Stop: 12/17/17 08:59 Last Admin: 10/19/17 13:14 Dose: 1 drop Baclofen (Lioresal) 5 mg PO Q8HR [facility] Stop: 12/17/17 12:59 Last Admin: 10/19/17 13:14 Dose: 5 mg Cyanocobalamin (Vitamin B12) 1,000 mcg PO DAILY [facility] Stop: 12/17/17 08:59 Last Admin: 10/19/17 08:22 Dose: 1,000 mcg Divalproex Sodium (Depakote Dr) 375 mg PO HS [facility]; Protocol Stop: 12/17/17 20:59 Last Admin: 10/18/17 21:14 Dose: 375 mg Docusate Sodium (Colace) 250 mg PO DAILY [facility] Stop: 12/17/17 08:59 Last Admin: 10/19/17 08:23 Dose: 250 mg Fluocinonide (Lidex 0.05%) 1 appl TP DAILY [facility] Stop: 12/18/17 08:59 Last Admin: 10/19/17 08:23 Dose: 1 appl Folic Acid (Folate) 1 mg PO DAILY [facility] Stop: 12/17/17 08:59 Last Admin: 10/19/17 08:22 Dose: 1 mg Glimepiride (Amaryl) 4 mg PO BID [facility] Stop: 12/17/17 08:59 Last Admin: 10/19/17 08:22 Dose: 4 mg Sodium Chloride (Nacl 0.9%) 1,000 mls @ 100 mls/hr IV .Q10H [facility] Stop: 12/16/17 21:59 Last Admin: 10/19/17 05:01 Dose: 100 mls/hr Insulin Aspart (Novolog Insulin Sliding Scale) 0 units SUBQ ACHS [facility]; Protocol Stop: 12/17/17 11:29 Last Admin: 10/19/17 11:35 Dose: Not Given Ketoconazole (Nizoral 2% Cream) 1 appl TP DAILY [facility] Stop: 12/17/17 08:59 Loratadine (Claritin) 10 mg PO DAILY [facility] Stop: 12/17/17 08:59 Last Admin: 10/19/17 08:22 Dose: 10 mg Lorazepam (Ativan) 0.5 mg PO Q4HR PRN; Protocol PRN Reason: Anxiety/Agitation Stop: 12/17/17 07:49 Last Admin: 10/18/17 09:31 Dose: 0.5 mg Metformin HCl (Glucophage) 500 mg PO BID [facility] Stop: 12/17/17 08:59 Last Admin: 10/19/17 08:22 Dose: 500 mg Methimazole (Tapazole) 5 mg PO DAILY [facility] Stop: 12/17/17 08:59 Last Admin: 10/19/17 08:22 Dose: 5 mg Multivitamins/Vitamin C (Theragran) 1 tab PO DAILY [facility] Stop: 12/17/17 08:59 Last Admin: 10/19/17 08:22 Dose: 1 tab Quetiapine Fumarate (Seroquel) 50 mg PO TID [facility]; Protocol Stop: 12/17/17 20:59 Last Admin: 10/19/17 13:14 Dose: 50 mg Simvastatin (Zocor) 40 mg PO HS [facility]; Protocol Stop: 12/17/17 20:59 Last Admin: 10/18/17 21:14 Dose: 40 mg Tramadol HCl (Ultram) 50 mg PO TID PRN PRN Reason: Pain (Moderate) Stop: 12/17/17 07:49 Warfarin Sodium (Coumadin Per Pharmacy) 1 jeannine RAJPUT QAM [facility]; Protocol Stop: 12/17/17 08:59 Zolpidem Tartrate (Ambien) 5 mg PO HS PRN PRN Reason: Insomnia Stop: 12/17/17 07:49 Lab - Result Diagrams 10/19/17 05:53 10/20/17 04:10 Na up to 131 continue NS f/u electrolytes possible DC today
== END 2017-10-20 16:54 | DRG 641 ==
LOC: ER 16:54 → TELE 20:10
PROVIDERS: ADMIT Internal Medicine; ATTEND Internal Medicine
DX: E87.1 Hypo-osmolality and hyponatremia (principal); D68.9 Coagulation defect, unspecified; F20.9 Schizophrenia, unspecified; L89.622 Pressure ulcer of left heel, stage 2; M19.90 Unspecified osteoarthritis, unspecified site; E78.5 Hyperlipidemia, unspecified; L89.629 Pressure ulcer of left heel, unspecified stage; D63.8 Anemia in other chronic diseases classified elsewhere; F31.9 Bipolar disorder, unspecified; F41.9 Anxiety disorder, unspecified; G47.00 Insomnia, unspecified; I10 Essential (primary) hypertension; Z91.018 Allergy to other foods; Z86.73 Personal history of transient ischemic attack (TIA), and cerebral infarction without residual deficits; Z89.511 Acquired absence of right leg below knee
CPT/HCPCS: 36415-UA; 71045-TC; 80048-TC; 80053-TC; 80061-TC; 80164-TC; 80307; 81003-TC; 82088-90; 82533-90; 82948-90; 83735-TC; 83930-90; 84100-TC; 84300-TC; 84443-TC; 84550-TC; 85025-TC; 85610-TC; 85730-TC; J1815; Z7610

== ENCOUNTER 2018-02-25 18:57 | Inpatient (IN) | payer MEDICARE, MEDICAID ==
--- NOTE | 2018-02-25 19:24 | ED Physician Chart ---
ED Chief Complaint/HPI - Patient Information Date Seen:: 02/26/18 Time Seen:: 19:00 Chief Complaint:: Left Foot Pain History of Present Illness:: onset x 3 days of left foot pain, redness, swelling, and erythema; no report of trauma, H/As, neck pain, C/P, SOB, Abd. Pain, A/N/V/D/C, fever, chills, or urinary s/s; pt's last tetanus shot: < 5 years; UTD Allergies:: Allergies Allergy/AdvReac Type Severity Reaction Status Date / Time scallops Allergy Verified 02/25/18 19:08 shrimp Allergy Verified 02/25/18 19:08 wheat Allergy Verified 02/25/18 19:08 Vitals:: Vital Signs - 8 hr 02/25/18 18:58 Temp 98.4 F HR 114 RR 18 BP 116/76 O2 Sat % 96 Historian:: Patient, EMS Review:: Nurse's Note Reviewed, Old Chart Reviewed, EMS run form Reviewed ED Review of Systems - Review of Systems General/Constitutional: No fever, No chills, No weight loss, No weakness, No diaphoresis, No edema, No loss of appetite Skin: Skin lesions, No rash, No bruising Head: No headache, No light-headedness Eyes: No loss of vision, No pain, No diplopia ENT: No earache, No nasal drainage, No sore throat, No tinnitus Neck: No neck pain, No swelling, No thyromegaly, No stiffness, No mass noted Cardio Vascular: No chest pain, No palpitations, No PND, No orthopnea, No edema Pulmonary: No SOB, No cough, No sputum, No wheezing GI: No nausea, No vomiting, No diarrhea, No pain, No melena, No hematochezia, No constipation, No hematemesis G/U: No dysuria, No frequency, No hematuria, No nacturia Musculoskeletal: No bone or joint pain, No back pain, No muscle pain Endocrine: No polyuria, No polydipsia Psychiatric: Prior psych history, Depression, Anxiety, No suicidal ideation, No homicidal ideation, No auditory hallucination, No visual hallucination Hematopoietic: No bruising, No lymphadenopathy Allergic/Immuno: No urticaria, No angioedema Neurological: No syncope, No focal symptoms, No weakness, No paresthesia, No headache, No seizure, No dizziness, No confusion, No vertigo ED Past Medical History - Past Medical History Obtainable: Yes Past Medical History: HTN, DM, Dyslipidemia Family History: Diabetes Melitus, HTN Social History: Non Smoker, No Alcohol, No Drug Use, Single, Care Facility Surgical History: HIP, other (Right BKA; ) Psychiatricy History: Bipolar Medication: Reviewed Family Medical History - Family Member Father History Unknown: Yes Ethnicity: Unknown Living Status: Unknown Hx Family Cancer: No Hx Family Coronary Artery Disease: No Hx Family Congestive Heart Failure: No Hx Family Hypertension: No Hx Family Stroke: No Hx Family Diabetes: No Hx Family Seizures: No Hx Family Dementia: No Hx Family AIDS: No Hx Family HIV: No Hx Family COPD: No Hx Family Hepatitis: No Hx Family Psychiatric Problems: No Hx Family Tuberculosis: No ED Physical Exam - Physical Examination General/Constitutional: Awake, Well-developed, well-nourished, Alert, No distress, GCS 15, Non-toxic appearing, Ambulatory Head: Atraumatic Eyes: Lids, conjuctiva normal, PERRL, EOMI Skin: Nl inspection, No rash, No skin lesions, No ecchymosis, Well hydrated, No lymphadenopathy Other Skin comments:: + Left Foot Wound/Ulcer/Cellulitis; + Right BKA ENMT: External ears, nose nl, TM canals nl, Nasal exam nl, Lips, teeth, gums nl , Oropharynx nl, Tonsils nl Neck: Nontender, Full ROM w/o pain, No JVD, No nuchal rigidity, No bruit, No mass, No stridor Respiratory: Nl effort/Exclusion, Clear to Auscultation, No Wheeze/Rhonchi/Rales Cardio Vascular: RRR, No murmur, gallop, rubs, NL S1 S2, Carotid/Femoral/Distal pulses equal bilaterally GI: No tenderness/rebounding/guarding, No organomegaly, No hernia, Normal BS's, Nondistended, No mass/bruits, No McBurney tenderness : No CVA tenderness Extremities: No tenderness or effusion, Full ROM, normal strength in all extremities, No edema, Normal digits & nails Neuro/Psych: Alert/oriented, DTR's symmetric, Normal sensory exam, Normal motor strength, Judgement/insight normal, Mood normal, Normal gait, No focal deficits Misc: Normal back, No paraspinal tenderness ED Labs/Radiology/EKG Results - Lab Results Comments:: Reviewed - Radiology Results Comments:: NAD - EKG Interpretations EKG Time:: 19:30 Rate & Rhythm: 114; ST Comments:: non-specific st-t changes ED Septic Shock - . Is Septic Shock (SBP<90, OR Lactate>4 mmol\L) present?: No - <6hrs of presentation: Vital Signs: Vital Signs - 8 hr 02/25/18 18:58 Temp 98.4 F HR 114 RR 18 BP 116/76 O2 Sat % 96 ED Reassessment (Disposition) - Reassessment Reassessment Condition:: Improved - Diagnosis Diagnosis:: Left Foot Wound; DM; Hyperglycemia; Left Foot Cellulitis; UTI; Sepsis - Aftercare/Follow up Instructions Aftercare/Follow-Up Instructions:: Counseled pt regarding lab results/diagnosis & need follow up, Counseled pt & family regarding lab results/diagnosis & need follow up - Patient Disposition Discharge/Transfer:: Acute Care w/in this hosp Accepting Physician:: Dr. Rafael Covington Time Called:: 2044 Time Responded:: 20:45 Admitted to:: Telemetry Spoke to:: Dr. Rafael Covington Admitting Medical Physician:: Dr. Rafeal Covington Condition at Disposition:: Stable, Improved
[2018-02-25 20:10] LABS: % BASOPHILS 0.4 % (0.0-2.0); % EOSINOPHILS 2.9 % (0.0-5.0); % LYMPHOCYTES 25.7 % (20.0-50.0); % MONOCYTES 6.3 % (2.0-10.0); % NEUTROPHILS 64.7 % (40.0-80.0); EOSINOPHILE ABSOLUTE 0.2 Th/cmm (0.1-0.4); HEMATOCRIT 38.2 % (41.0-60); HEMOGLOBIN 12.6 gm/dL (12-16); LYMPHOCYTE ABSOLUTE 1.6 Th/cmm (1.5-3.0); MEAN CELL VOLUME 86.3 fl (80-99); MEAN CORPUSCULAR HEMOGLOBIN 28.4 pg (27.0-31.0); MEAN CORPUSCULAR HGB CONC 32.9 pg (28.0-36.0); MEAN PLATELET VOLUME 7.3 fl; MONOCYTE ABSOLUTE 0.4 Th/cmm (0.3-1.0); NEUTROPHILE ABSOLUTE 4.2 Th/cmm (1.8-8.0); PLATELET COUNT 356 Th/cmm (150-400); RED BLOOD COUNT 4.43 Mil/cmm (3.80-5.80); RED CELL DISTRIBUTION WIDTH 14.7 % (11.5-20.0); WHITE BLOOD COUNT 6.4 Th/cmm (4.8-10.8)
[2018-02-25 20:20] LABS: INR 1.67 (0.5-1.4)
[2018-02-25 20:21] LABS: ALB/GLOB RATIO 1.1 (1.0-1.8); ALBUMIN 3.7 gm/dL (4.2-5.5); ALKALINE PHOSPHATASE 70 U/L (34-104); ANION GAP 11.9 (7.0-16.0); BILIRUBIN,TOTAL 0.5 mg/dL (0.3-1.0); BUN - UREA NITROGEN 13 mg/dL (7-25); CALCIUM SERUM 9.3 mg/dL (8.6-10.3); CARBON DIOXIDE 28.4 mEq/L (21.0-31.0); CHLORIDE 101 mEq/L (98-107); CREATININE - SERUM 0.7 mg/dL (0.7-1.3); CREATININE KINASE 20 U/L (30-223); GFR AFRICAN-AMERICAN > 60.0 ml/min (>90); GFR NON AFRICAN-AMERICAN > 60.0 ml/min; GLUCOSE 159 mg/dL (70-105); POTASSIUM SERUM 4.3 mEq/L (3.5-5.1); SGOT 10 U/L (13-39); SGPT/ALT 8 U/L (7-52); SODIUM SERUM 137 mEq/L (136-145); TOTAL PROTEIN,SERUM 7.1 gm/dL (6.0-8.3)
[2018-02-25 20:29] LABS: URINE SOURCE MIDSTREAM
[2018-02-25 20:34] LABS: URINE BILIRUBIN NEGATIVE (NEGATIVE); URINE BLOOD NEGATIVE (NEGATIVE); URINE GLUCOSE (UA) NEGATIVE (NEGATIVE); URINE KETONE NEGATIVE (NEGATIVE); URINE LEUKOCYTE ESTERASE NEGATIVE (NEGATIVE); URINE NITRATE NEGATIVE (NEGATIVE); URINE PH 7.5 (4.6 - 8.0); URINE PROTEIN NEGATIVE (NEGATIVE)
[2018-02-25 20:36] LABS: TROP I < 0.01 ng/mL (0.01-0.05)
[2018-02-25 20:51] LABS: URINE CLARITY CLEAR (CLEAR); URINE COLOR YELLOW
[2018-02-25 20:52] LABS: URINE BACTERIA OCCASIONAL /hpf (NONE SEEN); URINE EPITHELIAL CELLS NONE SEEN /lpf (FEW); URINE MICROSCOPIC INDICATED? YES; URINE RBC NONE SEEN /hpf (0-5); URINE WBC 0-2 /hpf (0-5)
[2018-02-26] MEDS: Levofloxacin 750mg/150mL 750 MG/150 ML BAG IV SCH ×2 (00:25→23:56)
[2018-02-26 03:36] VITALS: BP 123/66
[2018-02-26] MEDS ORDERED: BUPRENORPHINE TD SCH (12:45)
--- NOTE | 2018-02-26 15:09 | History and Physical ---
History of Present Illness - HPI Chief Complaint: left ankle wound HPI: 67 year male with history of noncompliance, cva, htn, right BKA presented to the ED for non healing left ankle wound. No fever, no chills. no cough.[ no cheast pains Vital Signs: Last Vital Signs Temp 97.9 F 02/26/18 11:55 Pulse 96 02/26/18 11:55 Resp 18 02/26/18 11:55 BP 124/65 02/26/18 11:55 Pulse Ox 99 02/26/18 11:55 Weight (lbs): 85.5 kg Past Medical History Cardiovascular: Report: HTN, Hyperlipidemia Musculoskeletal: Report: Osteoarthritis Endocrine: Report: Diabetes Dermatology: Report: Rash (wound left foot) Family Medical History - Family Member Father History Unknown: Yes Ethnicity: Unknown Living Status: Unknown Hx Family Cancer: No Hx Family Coronary Artery Disease: No Hx Family Congestive Heart Failure: No Hx Family Hypertension: No Hx Family Stroke: No Hx Family Diabetes: No Hx Family Seizures: No Hx Family Dementia: No Hx Family AIDS: No Hx Family HIV: No Hx Family COPD: No Hx Family Hepatitis: No Hx Family Psychiatric Problems: No Hx Family Tuberculosis: No Social History Smoke: No Alcohol: None Drugs: None Lives: Alone - Medications Home Medications: Home Medication Medication Instructions Recorded Type Buprenorphine [Butrans] 1 each TD QTHUR 02/25/18 History Divalproex Sodium [Depakote] 3 tab PO HS 02/25/18 History Levofloxacin [Levaquin] 500 mg PO DAILY 02/25/18 History QUEtiapine Fumarate [SEROquel] 50 mg PO TID 02/25/18 History RX: Glimepiride 4 mg PO DAILY 02/25/18 History RX: metFORMIN [Glucophage] 500 mg PO BID 02/25/18 History Simvastatin [Zocor*] 40 mg PO HS 02/25/18 History Tamsulosin [Flomax] 0.4 mg DAILY 02/25/18 History Warfarin Sodium [Coumadin*] 5 mg PO DAILY 02/25/18 History - Allergies Allergies/Adverse Reactions: Allergies Allergy/AdvReac Type Severity Reaction Status Date / Time scallops Allergy Verified 02/25/18 19:08 shrimp Allergy Verified 02/25/18 19:08 wheat Allergy Verified 02/25/18 19:08 Review of Systems - Review of Systems Constitutional: Report: No Significant. Denies: Fever, Chills, Sweats, Weakness , Malaise, Other Eyes: Report: No Significant. Denies: Pain, Vision Change, Conjunctivae Inflammation, Eyelid Inflammation, Redness, Other ENT: Denies: No Significant, Ear Pain, Ear Discharge, Nose Pain, Nose Discharge , Nose Congestion, Mouth Pain, Mouth Swelling, Throat Pain, Throat Swelling, Other Respiratory: Report: No Significant. Denies: Cough, Dry, Shortness of Breath, Hemoptysis, SOB with Excertion, Pleuritic Pain, Sputum, Wheezing, Other Cardiovascular: Report: No Significant. Denies: Chest Pain, Palpitations, Orthopnea, Paroxysmal Noc. Dyspnea, Edema, Light Headedness, Other Gastrointestinal: Report: No Significant. Denies: Nausea, Vomiting, Abdominal Pain, Diarrhea, Constipation, Melena, Hematochezia, Other Genitourinary: Report: No Significant. Denies: Dysuria, Frequency, Incontinence , Hematuria, Retention, Other Musculoskeletal: Report: No Significant. Denies: Neck Pain, Shoulder Pain, Arm Pain, Back Pain, Hand Pain, Leg Pain, Foot Pain, Other Skin: Report: No Significant, Other (ulcer left ankle). Denies: Rash, Lesions, Mak, Bruising Neurological: Report: No Significant. Denies: Weakness, Numbness, Incoordination, Change in Speech, Confusion, Seizures, Other Physical Exam - Physical Exam HEENT: Report: Ears Nose Throat within normal limits, Pharnyx within normal limits Neck: Report: Within normal limits Cardiovascular Systems: Report: +s1/s2 noted, Regular, Rate and Rhythm, no murmurs noted Respiratory: Report: Breath Sounds are within normal limits Abdomen: Report: Non-tender to palpation, Bowel Sounds are within normal limits. Denies: Tender to palpation, Guarding, Rebound upon palpation, Abnormal Bowel Sounds, Hepatomegaly Noted, Splenomegaly Noted, Mass palpated, PEG site is clean Back: Report: Inspection of back is within normal limits. Extremities: Report: Non-tender to palpation., Other (Left heel wound with pink base) Skin: Report: Color of skin is within normal limits Neuro/Psych: Report: A+Ox3 - Lab Results All Lab Results last 24 hours: Laboratory Results - last 24 hr 02/25/18 02/25/18 02/25/18 19:50 19:50 19:50 WBC 6.4 RBC 4.43 Hgb 12.6 Hct 38.2 L MCV 86.3 MCH 28.4 MCHC Differential 32.9 RDW 14.7 Plt Count 356 MPV 7.3 Neutrophils % 64.7 Lymphocytes % 25.7 Monocytes % 6.3 Eosinophils % 2.9 Basophils % 0.4 PT 17.0 H INR 1.67 H PTT (Actin FS) 34.4 Sodium 137 Potassium 4.3 Chloride 101 Carbon Dioxide 28.4 Anion Gap 11.9 BUN 13 Creatinine 0.7 Est GFR ( Amer) > 60.0 Est GFR (Non-Af Amer) > 60.0 BUN/Creatinine Ratio 18.6 Glucose 159 H Whole Bld Lactic Acid Calcium 9.3 Total Bilirubin 0.5 AST 10 L ALT 8 Alkaline Phosphatase 70 Creatine Kinase 20 L Troponin I Total Protein 7.1 Albumin 3.7 L Globulin 3.4 Albumin/Globulin Ratio 1.1 Urine Source Urine Color Urine Clarity Urine pH Ur Specific [place] Urine Protein Urine Glucose (UA) Urine Ketones Urine Blood Urine Nitrate Urine Bilirubin Urine Urobilinogen Ur Leukocyte Esterase Urine RBC Urine WBC Ur Epithelial Cells Urine Bacteria 02/25/18 02/25/18 19:50 20:28 WBC RBC Hgb Hct MCV MCH MCHC Differential RDW Plt Count MPV Neutrophils % Lymphocytes % Monocytes % Eosinophils % Basophils % PT INR PTT (Actin FS) Sodium Potassium Chloride Carbon Dioxide Anion Gap BUN Creatinine Est GFR ( Amer) Est GFR (Non-Af Amer) BUN/Creatinine Ratio Glucose Whole Bld Lactic Acid 1.26 Calcium Total Bilirubin AST ALT Alkaline Phosphatase Creatine Kinase Troponin I < 0.01 L Total Protein Albumin Globulin Albumin/Globulin Ratio Urine Source [place] Urine Color YELLOW Urine Clarity CLEAR Urine pH 7.5 Ur Specific [place] 1.010 Urine Protein NEGATIVE Urine Glucose (UA) NEGATIVE Urine Ketones NEGATIVE Urine Blood NEGATIVE Urine Nitrate NEGATIVE Urine Bilirubin NEGATIVE Urine Urobilinogen 1.0 Ur Leukocyte Esterase NEGATIVE Urine RBC NONE SEEN Urine WBC 0-2 Ur Epithelial Cells NONE SEEN Urine Bacteria OCCASIONAL - Assessment Assessment: IMPRESSION: 1. Left ankle deformity and chronic nonhealing ulcer, mild cellulitis. 2. Diabetes mellitus type 2. 3. Hyperlipidemia. 4. Hypertension. 5. Cerebrovascular accident. - Plan Plan: Continue Levaquin.
[2018-02-26] MEDS: INSULIN ASPART SLIDING SCALE 100 UNITS/ML UNIT SUBQ SCH (20:32)
[2018-02-27] MEDS: INSULIN ASPART SLIDING SCALE 100 UNITS/ML UNIT SUBQ SCH ×4 (06:48→20:24)
[2018-02-27 10:39] LABS: INR 1.35 (0.5-1.4); PROTHROMBIN TIME (TEST) 13.8 SECONDS (9.5-11.5)
[2018-02-27] MEDS: Venelex 60gm Tube TP SCH (16:49)
[2018-02-27] MEDS: Levofloxacin 750mg/150mL 750 MG/150 ML BAG IV SCH (22:56)
[2018-02-28 05:35] LABS: INR 1.53 (0.5-1.4); PROTHROMBIN TIME (TEST) 15.6 SECONDS (9.5-11.5)
[2018-02-28] MEDS: INSULIN ASPART SLIDING SCALE 100 UNITS/ML UNIT SUBQ SCH ×5 (06:38→21:18)
--- NOTE | 2018-02-28 07:09 | Progress Notes ---
DATE: 02/27/2018 SUBJECTIVE: The patient lying in the bed, not in acute distress. No fever, no chills. The patient is noncompliant. OBJECTIVE: VITAL SIGNS: Current vital signs shows temperature is 98.2, pulse 136, respirations 19, blood pressure 199/65. GENERAL: The patient is comfortable lying in the bed, not in acute distress. HEENT: Head is normocephalic, atraumatic. Oral cavity moist, pink tongue. NECK: Supple, no JVD, no bruit. Trachea in midline. CHEST: Bilateral breath sounds. No crackles or wheezing. HEART: S1, S2 within normal limits. Regular rhythm. No murmur, no gallop. ABDOMEN: Soft, nontender, nondistended. Bowel sounds present. EXTREMITIES: No cyanosis, no clubbing, no edema. Right leg BKA. The patient has deformity of the left ankle with open ulcers. Mild erythema, no discharge. NEUROLOGIC: Alert, awake, oriented x 3. LABORATORY DATA: WBC count is 6400, hemoglobin 12.6, hematocrit is 38.2, platelets are 356,000, neutrophil is 64.7%. INR is 1.35. Sodium is 137, potassium 4.3, chloride 101, bicarb is 28.4, BUN is 13, creatinine 0.7, glucose of 159. Urinalysis negative nitrite, negative, leukoesterase. Wound cultures are pending. Gram stain showed gram positive cocci. Blood culture, no growth. MRSA negative. Urine culture also negative. ASSESSMENT: 1. Left ankle deformity and a chronic nonhealing ulcer. Mild cellulitis. 2. Diabetes mellitus type 2. 3. Hyperlipidemia. 4. Hypertension. 5. CVA and left sided weakness. 6. Right BKA RECOMMENDATIONS: We will continue Levaquin. JOB# [id number] [facility] CAMPUSAbigail
[2018-02-28] MEDS: Venelex 60gm Tube TP SCH (09:24)
[2018-02-28] MEDS: Levofloxacin 750mg/150mL 750 MG/150 ML BAG IV SCH (22:59)
[2018-03-01 05:20] LABS: INR 2.04 (0.5-1.4); PROTHROMBIN TIME (TEST) 20.5 SECONDS (9.5-11.5)
[2018-03-01] MEDS: INSULIN ASPART SLIDING SCALE 100 UNITS/ML UNIT SUBQ SCH ×4 (08:06→20:22)
[2018-03-01] MEDS: Venelex 60gm Tube TP SCH (08:19)
--- NOTE | 2018-03-01 18:20 | Consultation ---
DATE OF CONSULTATION: 03/01/2018 HISTORY OF PRESENT ILLNESS: The patient is a 67-year-old gentleman, admitted to [facility] via the Emergency Room on 02/25/2018 with diagnoses of left foot wound, diabetes mellitus, hyperglycemia, left foot cellulitis, urinary tract infection and sepsis. I received a call today for an orthopedic consultation. I asked the nurse on duty about the reason for consultation and she stated the patient's left ankle is curved or crooked and that I was asked to evaluate his crooked left ankle. The patient stated that he had a stroke 12 years ago, his right carotid artery plugged up and this left him with left hemiparesis and he has had limited use of his left arm and leg since that time, and the foot and ankle have always been in the present position, i.e., with the foot and ankle leaning toward the midline. He was in a brace 8 years ago, but did not tolerate that well, so presently he simply keeps it on a pillow and he is comfortable - no complaints or pain regarding his "crooked left ankle." Also noted were some dry lesions on the toes and heel - no suppuration, drainage, redness or pus. He has limited feeling in the left foot and very little volitional movement possible. He has a right below-knee amputation - from injury he received when he served in the in [place]. IMAGING STUDIES: I could find no scans or x-rays of the patient's left leg or foot. ORTHOPEDIC DIAGNOSIS: Status post right cerebrovascular accident resulting in left hemiparesis with typical posturing of his left foot and ankle. DISCUSSION: The patient is comfortable regarding his left foot and ankle. He has decreased sensation, i.e., neuropathy, but is not having any pain. He would not tolerate a brace as it would have to put some degree of pressure on his foot and ankle to try and push or hold it straight and any pressure on his foot will certainly result in breakdown of the skin and ulceration-infection. He should be propped comfortably with pillows in the ankle, otherwise left alone. Thank you for this interesting referral. JOB# [id number]
--- NOTE | 2018-03-01 19:44 | Consultation ---
DATE OF CONSULTATION: 03/01/2018 NO DICTATION JOB# [id number]
[2018-03-01] MEDS: Levofloxacin 750mg/150mL 750 MG/150 ML BAG IV SCH (23:02)
--- NOTE | 2018-03-02 04:40 | Progress Notes ---
DATE: 03/01/2018 SUBJECTIVE: The patient lying in the bed, not in acute distress, noncompliant. OBJECTIVE: CURRENT VITAL SIGNS: Temperature is 97.9, pulse 92, respirations 18, blood pressure 110/75. GENERAL: The patient is comfortable. HEENT: Head is normocephalic, atraumatic. Oral cavity moist, pink tongue. NECK: Supple, no JVD, no bruit. Trachea midline. CHEST: Bilateral breath sounds. No crackles, no wheezing. HEART: S1, S2 within normal limits. Regular rhythm. No murmur. No gallop. ABDOMEN: Soft, nontender, nondistended. Bowel sounds present. EXTREMITIES: No cyanosis, no clubbing, no edema. Right BKA, left ankle deformity had a small ulcer on lateral aspect. NEUROLOGIC: Alert and awake. Speech is clear. LABORATORY DATA: Left foot ulcer wound culture grew MRSA. IMPRESSION: 1. Left ankle deformity and chronic nonhealing ulcer, mild cellulitis. 2. Diabetes mellitus type 2. 3. Hyperlipidemia. 4. Hypertension. 5. Cerebrovascular accident. RECOMMENDATION: Change the Levaquin to Bactrim p.o. for 2 weeks. Discharge plan. JOB# [id number]
[2018-03-02] MEDS: INSULIN ASPART SLIDING SCALE 100 UNITS/ML UNIT SUBQ SCH ×4 (06:42→20:26)
[2018-03-02] MEDS: Sulfamethoxazole/TMP 800/160mg Tab PO SCH ×2 (09:12→17:58)
[2018-03-02] MEDS: Venelex 60gm Tube TP SCH (09:48)
[2018-03-02 11:48] LABS: INR 2.53 (0.5-1.4); PROTHROMBIN TIME (TEST) 25.2 SECONDS (9.5-11.5)
[2018-03-03 05:16] LABS: INR 2.43 (0.5-1.4); PROTHROMBIN TIME (TEST) 24.2 SECONDS (9.5-11.5)
[2018-03-03] MEDS: INSULIN ASPART SLIDING SCALE 100 UNITS/ML UNIT SUBQ SCH ×4 (06:42→21:52)
[2018-03-03] MEDS: Venelex 60gm Tube TP SCH (08:41)
[2018-03-03] MEDS: Sulfamethoxazole/TMP 800/160mg Tab PO SCH ×2 (08:41→16:42)
--- NOTE | 2018-03-03 10:55 | Consultation ---
DATE OF CONSULTATION: 03/03/2018 PSYCHIATRIC CONSULT PATIENT'S AGE: 67. SEX: Male. PHYSICIAN: Ezra Covington M.D.. REASON FOR THE CONSULT: History of bipolar and evaluating psychotropic medications. HISTORY OF PRESENT ILLNESS: The patient is a 67-year-old male with history of bipolar disorder. The patient has not been compliant with taking his medications and he has history of CVA, hypertension, and right below knee amputation. The patient was presented to the Emergency Room with a nonhealing left ankle wound. Chart reviewed and the patient interviewed and discussed the patient's condition with the staff. The patient has history of bipolar disorder and he is taking Depakote and Seroquel. The patient said that he has been anxious and depressed lately and "miss my grandchildren and it's [place]." The patient lives currently with his daughter. The patient said that he has been taking his medications with no problems psychologically except slightly depressed due to the holidays and with seeing grandkids. He denies any mood swings and he denies any thoughts of suicide. He admitted that he was not compliant with taking his medications regularly. PAST PSYCHIATRIC HISTORY: The patient has a history of bipolar and has been taking Seroquel and Depakote with no side effects. PAST MEDICAL HISTORY: As mentioned above. SOCIAL HISTORY: The patient lives with his daughter. He denied any alcohol or any street drug use. ALLERGIES: No known allergies. MENTAL STATUS EXAMINATION: The patient appears his stated age. Cooperative. Anxious. Mood slightly depressed. The patient denies any auditory or visual hallucinations or delusions. He denies any thoughts of suicide or homicide. The patient is alert and oriented to time, place, person, and situation. Intact immediate, recent, and remote memories. Fair insight and judgment. Seems to be of average intelligence based on his verbal ability. ASSESSMENT: PRIMARY DIAGNOSIS: Bipolar disorder, depressed episode, moderate, without psychotic features. TREATMENT PLAN: We will continue Seroquel and Depakote same dose. We will monitor the dose. Also, we will work on his ineffective coping. Thanks to Dr. Rafael Covington and we will follow with you. [facility]# [id number]
[2018-03-03] MEDS: Metoprolol tartrate 1 mg/ml 5mL Amp IV PRN ×2 (13:06→19:36)
--- NOTE | 2018-03-03 16:44 | Consultation ---
DATE OF CONSULTATION: 03/03/[address] Ezra Covington. HISTORY OF PRESENT ILLNESS: This is a 67-year-old male patient who has a left foot wound for which the patient came to the Emergency Room. The patient had MRSA of the left foot. The patient during hospital stay developed supraventricular tachycardia with a rate of 120 per minute and hence Cardiology consult is requested. PAST MEDICAL HISTORY: Left foot wound MRSA, paroxysmal atrial fibrillation converted to normal sinus rhythm, diabetes mellitus type 2, left foot cellulitis, left CEA, right carotid stenosis, right BKA, BPH, and hyperlipidemia. PHYSICAL EXAMINATION: VITAL SIGNS: Blood pressure 132/80, pulse 120, and respirations 28. HEAD: Normocephalic. No lumps or bumps. EYES: Pupils equal, reactive to light. Fundi show AV nicking, sclerae white, conjunctivae pink. NECK: Carotid 2+. Normal upstroke. JVD flat. Thyroid not palpable. Lymph nodes not palpable. CHEST: Shows increased AP diameter. No kyphosis, scoliosis. LUNGS: Bilateral bronchovesicular breath sounds. HEART: PMI fifth intercostal space with lateral to midclavicular line. S1, S2. No S3, S4, soft systolic murmur. ABDOMEN: Soft. Liver, spleen not palpable. No organomegaly. Bowel sounds active. NEUROLOGIC: Left-sided weakness secondary to previous stroke. The patient has right BKA. Left leg cellulitis with ulcer. CLINICAL IMPRESSION: 1. Paroxysmal atrial fibrillation converted to normal sinus rhythm with sinus tachycardia. 2. Diabetes mellitus type 2. 3. Left foot cellulitis with wound. 4. Cerebrovascular accident with left hemiparesis. 5. Right below the knee amputation. 6. Benign prostatic hypertrophy. 7. Hyperlipidemia. PLAN: The patient to be given IV Lopressor to control the heart rate followed by oral Lopressor. The patient to continue anticoagulation, IV antibiotics. JOB# [id number]
[2018-03-03] MEDS: Diltiazem 30 mg Tab PO SCH ×2 (17:21→23:57)
--- NOTE | 2018-03-03 17:47 | Internal Medicine Prog Note ---
Internal Medicine Objective - Results Result Diagrams: 02/25/18 19:50 02/25/18 19:50 Recent Labs: Laboratory Last Values WBC 6.4 Th/cmm (4.8-10.8) 02/25/18 19:50 RBC 4.43 Mil/cmm (3.80-5.80) 02/25/18 19:50 Hgb 12.6 gm/dL (12-16) 02/25/18 19:50 Hct 38.2 % (41.0-60) L 02/25/18 19:50 MCV 86.3 fl (80-99) 02/25/18 19:50 MCH 28.4 pg (27.0-31.0) 02/25/18 19:50 MCHC Differential 32.9 pg (28.0-36.0) 02/25/18 19:50 RDW 14.7 % (11.5-20.0) 02/25/18 19:50 Plt Count 356 Th/cmm (150-400) 02/25/18 19:50 MPV 7.3 fl 02/25/18 19:50 Neutrophils % 64.7 % (40.0-80.0) 02/25/18 19:50 Lymphocytes % 25.7 % (20.0-50.0) 02/25/18 19:50 Monocytes % 6.3 % (2.0-10.0) 02/25/18 19:50 Eosinophils % 2.9 % (0.0-5.0) 02/25/18 19:50 Basophils % 0.4 % (0.0-2.0) 02/25/18 19:50 PT 24.2 SECONDS (9.5-11.5) H 03/03/18 04:00 INR 2.43 (0.5-1.4) H 03/03/18 04:00 PTT (Actin FS) 34.4 SECONDS (26.0-38.0) 02/25/18 19:50 Sodium 137 mEq/L (136-145) 02/25/18 19:50 Potassium 4.3 mEq/L (3.5-5.1) 02/25/18 19:50 Chloride 101 mEq/L (98-107) 02/25/18 19:50 Carbon Dioxide 28.4 mEq/L (21.0-31.0) 02/25/18 19:50 Anion Gap 11.9 (7.0-16.0) 02/25/18 19:50 BUN 13 mg/dL (7-25) 02/25/18 19:50 Creatinine 0.7 mg/dL (0.7-1.3) 02/25/18 19:50 Est GFR ( Amer) > 60.0 ml/min (>90) 02/25/18 19:50 Est GFR (Non-Af Amer) > 60.0 ml/min 02/25/18 19:50 BUN/Creatinine Ratio 18.6 02/25/18 19:50 Glucose 159 mg/dL (70-105) H 02/25/18 19:50 POC Glucose 76 MG/DL (70 - 105) 03/03/18 16:39 Whole Bld Lactic Acid 1.26 mmol/L (0.60-1.99) 02/25/18 19:50 Calcium 9.3 mg/dL (8.6-10.3) 02/25/18 19:50 Total Bilirubin 0.5 mg/dL (0.3-1.0) 02/25/18 19:50 AST 10 U/L (13-39) L 02/25/18 19:50 ALT 8 U/L (7-52) 02/25/18 19:50 Alkaline Phosphatase 70 U/L (34-104) 02/25/18 19:50 Creatine Kinase 20 U/L (30-223) L 02/25/18 19:50 Troponin I < 0.01 ng/mL (0.01-0.05) L 02/25/18 19:50 Total Protein 7.1 gm/dL (6.0-8.3) 02/25/18 19:50 Albumin 3.7 gm/dL (4.2-5.5) L 02/25/18 19:50 Globulin 3.4 gm/dL 02/25/18 19:50 Albumin/Globulin Ratio 1.1 (1.0-1.8) 02/25/18 19:50 Urine Source MIDSTREAM 02/25/18 20:28 Urine Color YELLOW 02/25/18 20:28 Urine Clarity CLEAR (CLEAR) 02/25/18 20:28 Urine pH 7.5 (4.6 - 8.0) 02/25/18 20:28 Ur Specific [place] 1.010 (1.005-1.030) 02/25/18 20:28 Urine Protein NEGATIVE mg/dL (NEGATIVE) 02/25/18 20:28 Urine Glucose (UA) NEGATIVE mg/dL (NEGATIVE) 02/25/18 20:28 Urine Ketones NEGATIVE mg/dL (NEGATIVE) 02/25/18 20:28 Urine Blood NEGATIVE (NEGATIVE) 02/25/18 20:28 Urine Nitrate NEGATIVE (NEGATIVE) 02/25/18 20:28 Urine Bilirubin NEGATIVE (NEGATIVE) 02/25/18 20:28 Urine Urobilinogen 1.0 E.U./dL (0.2 - 1.0) 02/25/18 20:28 Ur Leukocyte Esterase NEGATIVE (NEGATIVE) 02/25/18 20:28 Urine RBC NONE SEEN /hpf (0-5) 02/25/18 20:28 Urine WBC 0-2 /hpf (0-5) 02/25/18 20:28 Ur Epithelial Cells NONE SEEN /lpf (FEW) 02/25/18 20:28 Urine Bacteria OCCASIONAL /hpf (NONE SEEN) 02/25/18 20:28 - Physical Exam Vitals and I&O: Vital Signs Temp 98.7 F 03/03/18 16:22 Pulse 118 03/03/18 17:21 Resp 18 03/03/18 16:22 BP 138/76 03/03/18 16:22 Pulse Ox 99 03/03/18 16:22 Intake & Output 03/02/18 03/03/18 03/03/18 18:59 06:59 18:59 Intake Total 300 Balance 300 Weight (lbs) 83.461 kg Intake: Oral 300 Other: # Voids 3 Stool Characteristics Soft Weight Source Bedscale Active Medications: Current Medications Acetaminophen (Tylenol) 650 mg PO Q4H PRN PRN Reason: Pain or Fever >101 Stop: 04/26/18 21:29 Last Admin: 03/01/18 15:56 Dose: 650 mg [place]ulah Oil/Indonesian Balsam/Trypsin (Venelex) 1 appl TP DAILY [facility] Stop: 04/28/18 15:44 Last Admin: 03/03/18 08:41 Dose: 1 appl Diltiazem HCl (Cardizem) 60 mg PO Q6HR [facility] Stop: 05/02/18 17:59 Last Admin: 03/03/18 17:21 Dose: 60 mg Divalproex Sodium (Depakote Dr) 375 mg PO [facility]; Protocol Stop: 04/27/18 20:59 Last Admin: 03/02/18 20:29 Dose: 375 mg Glimepiride (Amaryl) 4 mg PO DAILY [facility] Stop: 04/28/18 08:59 Last Admin: 03/03/18 08:41 Dose: 4 mg Insulin Aspart (Novolog Insulin Sliding Scale) 0 units SUBQ [facility]; Protocol Stop: 04/27/18 16:29 Last Admin: 03/03/18 16:40 Dose: Not Given Metformin HCl (Glucophage) 500 mg PO BID [facility] Stop: 04/27/18 16:59 Last Admin: 03/03/18 16:42 Dose: 500 mg Metoprolol Tartrate (Lopressor) 5 mg IV Q4HR PRN PRN Reason: HR ABOVE 120 Stop: 05/02/18 15:59 Last Admin: 03/03/18 13:06 Dose: 5 mg Miscellaneous (Buprenorphine [Butrans]) 1 each TD QTHUR [facility] Stop: 04/27/18 12:44 Quetiapine Fumarate (Seroquel) 50 mg PO TID [facility]; Protocol Stop: 04/27/18 13:59 Last Admin: 03/03/18 13:26 Dose: 50 mg Simvastatin (Zocor) 20 mg PO [facility]; Protocol Stop: 04/27/18 20:59 Last Admin: 03/02/18 20:29 Dose: 20 mg Tamsulosin HCl (Flomax) 0.4 mg PO DAILY [facility] Stop: 04/28/18 08:59 Last Admin: 03/03/18 08:41 Dose: 0.4 mg Trimethoprim/Sulfamethoxazole (Bactrim Ds) 1 tab PO BID [facility] Stop: 05/01/18 08:59 Last Admin: 03/03/18 16:42 Dose: 1 tab Warfarin Sodium (Coumadin Per Pharmacy) 1 ea [facility] PRN PRN; Protocol PRN Reason: RX MONITORING Stop: 04/28/18 14:06 Nutritional Asmnt/Malnutr-PDOC - Dietary Evaluation Malnutrition Findings (Please click <Entered> for more info): Nutritional Asmnt/Malnutrition Start: 02/28/18 10: 48 Text: Status: Complete Freq: Protocol: Document 02/28/18 10:48 REESE (Rec: 02/28/18 10:55 REESE CABRERA- [email or web address]) Nutritional Asmnt/Malnutrition Patient General Information Diagnosis non healing diabetic foot ulcer Pertinent Medical Hx/Surgical Hx HTN, DM II, hyplipidemia Subjective Information Pt asleep at time of visit, unable to wake, will continue to try for coumadin education Current Diet Order/ [facility] Pertinent Medications novolog, metrformin, coumadin Pertinent Labs 02/27: POC glucose 111-140 Nutritional Hx/Data Height 1.78 m Height (Calculated Centimeters) 177.8 Current Weight (lbs) 85.275 kg Weight (Calculated Kilograms) 85.3 Weight (Calculated Grams) 25532.4 Body Mass Index (BMI) 26.9 Weight Status Overweight GI Symptoms GI Symptoms None Last BM none noted Cultural/Ethnic/Yarsani Belief unknown Usual diet at home [facility] Skin Integrity/Comment: Khurram score 13: L decubitis ulceration, sacrum pressure area Current %PO Good (75-100%) Estimated Nutritional Goals BEE in Kcals: Using Current wt Calories/Kcals/Kg MSJ x AF1.2-1.3 Kcals Calculated 1961-4kcals/day Protein: Using Current wt Protein g/kg/kg Protein Calculated 85g/day Fluid: ml per MD Nutritional Problem 1. Problem Problem No nutrition diagnosis at this time Intervention/Recommendation Comments Recommend continuing [facility] diet Expected Outcomes/Goals Expected Outcomes/Goals PO intake >75% of meals
--- NOTE | 2018-03-04 00:04 | Infectious Disease Prog Note ---
Infectious Disease Subjective - Review of Systems Service Date: 03/03/18 Subjective: There is no new change. no fever. Infectious Disease Objective - Results Result Diagrams: 02/25/18 19:50 02/25/18 19:50 Recent Labs: Laboratory Last Values WBC 6.4 Th/cmm (4.8-10.8) 02/25/18 19:50 RBC 4.43 Mil/cmm (3.80-5.80) 02/25/18 19:50 Hgb 12.6 gm/dL (12-16) 02/25/18 19:50 Hct 38.2 % (41.0-60) L 02/25/18 19:50 MCV 86.3 fl (80-99) 02/25/18 19:50 MCH 28.4 pg (27.0-31.0) 02/25/18 19:50 MCHC Differential 32.9 pg (28.0-36.0) 02/25/18 19:50 RDW 14.7 % (11.5-20.0) 02/25/18 19:50 Plt Count 356 Th/cmm (150-400) 02/25/18 19:50 MPV 7.3 fl 02/25/18 19:50 Neutrophils % 64.7 % (40.0-80.0) 02/25/18 19:50 Lymphocytes % 25.7 % (20.0-50.0) 02/25/18 19:50 Monocytes % 6.3 % (2.0-10.0) 02/25/18 19:50 Eosinophils % 2.9 % (0.0-5.0) 02/25/18 19:50 Basophils % 0.4 % (0.0-2.0) 02/25/18 19:50 PT 24.2 SECONDS (9.5-11.5) H 03/03/18 04:00 INR 2.43 (0.5-1.4) H 03/03/18 04:00 PTT (Actin FS) 34.4 SECONDS (26.0-38.0) 02/25/18 19:50 Sodium 137 mEq/L (136-145) 02/25/18 19:50 Potassium 4.3 mEq/L (3.5-5.1) 02/25/18 19:50 Chloride 101 mEq/L (98-107) 02/25/18 19:50 Carbon Dioxide 28.4 mEq/L (21.0-31.0) 02/25/18 19:50 Anion Gap 11.9 (7.0-16.0) 02/25/18 19:50 BUN 13 mg/dL (7-25) 02/25/18 19:50 Creatinine 0.7 mg/dL (0.7-1.3) 02/25/18 19:50 Est GFR ( Amer) > 60.0 ml/min (>90) 02/25/18 19:50 Est GFR (Non-Af Amer) > 60.0 ml/min 02/25/18 19:50 BUN/Creatinine Ratio 18.6 02/25/18 19:50 Glucose 159 mg/dL (70-105) H 02/25/18 19:50 POC Glucose 86 MG/DL (70 - 105) 03/03/18 20:13 Whole Bld Lactic Acid 1.26 mmol/L (0.60-1.99) 02/25/18 19:50 Calcium 9.3 mg/dL (8.6-10.3) 02/25/18 19:50 Total Bilirubin 0.5 mg/dL (0.3-1.0) 02/25/18 19:50 AST 10 U/L (13-39) L 02/25/18 19:50 ALT 8 U/L (7-52) 02/25/18 19:50 Alkaline Phosphatase 70 U/L (34-104) 02/25/18 19:50 Creatine Kinase 20 U/L (30-223) L 02/25/18 19:50 Troponin I < 0.01 ng/mL (0.01-0.05) L 02/25/18 19:50 Total Protein 7.1 gm/dL (6.0-8.3) 02/25/18 19:50 Albumin 3.7 gm/dL (4.2-5.5) L 02/25/18 19:50 Globulin 3.4 gm/dL 02/25/18 19:50 Albumin/Globulin Ratio 1.1 (1.0-1.8) 02/25/18 19:50 Urine Source MIDSTREAM 02/25/18 20:28 Urine Color YELLOW 02/25/18 20:28 Urine Clarity CLEAR (CLEAR) 02/25/18 20:28 Urine pH 7.5 (4.6 - 8.0) 02/25/18 20:28 Ur Specific [place] 1.010 (1.005-1.030) 02/25/18 20:28 Urine Protein NEGATIVE mg/dL (NEGATIVE) 02/25/18 20:28 Urine Glucose (UA) NEGATIVE mg/dL (NEGATIVE) 02/25/18 20:28 Urine Ketones NEGATIVE mg/dL (NEGATIVE) 02/25/18 20:28 Urine Blood NEGATIVE (NEGATIVE) 02/25/18 20:28 Urine Nitrate NEGATIVE (NEGATIVE) 02/25/18 20:28 Urine Bilirubin NEGATIVE (NEGATIVE) 02/25/18 20:28 Urine Urobilinogen 1.0 E.U./dL (0.2 - 1.0) 02/25/18 20:28 Ur Leukocyte Esterase NEGATIVE (NEGATIVE) 02/25/18 20:28 Urine RBC NONE SEEN /hpf (0-5) 02/25/18 20:28 Urine WBC 0-2 /hpf (0-5) 02/25/18 20:28 Ur Epithelial Cells NONE SEEN /lpf (FEW) 02/25/18 20:28 Urine Bacteria OCCASIONAL /hpf (NONE SEEN) 02/25/18 20:28 - Physical Exam Vitals and I&O: Vital Signs Temp 100.2 F 03/03/18 20:00 Pulse 91 03/03/18 23:57 Resp 18 03/03/18 20:00 BP 111/57 03/03/18 20:36 Pulse Ox 99 03/03/18 16:22 Intake & Output 03/03/18 03/03/18 03/04/18 06:59 18:59 06:59 Intake Total 300 1000 Balance 300 1000 Weight (lbs) 83.461 kg 83.461 kg Intake: Oral 300 1000 Other: # Voids 3 4 # Bowel Movements 0 Weight Source Bedscale Bedscale Active Medications: Current Medications Acetaminophen (Tylenol) 650 mg PO Q4H PRN PRN Reason: Pain or Fever >101 Stop: 04/26/18 21:29 Last Admin: 03/03/18 19:58 Dose: 650 mg Bly Oil/Salvadorean Balsam/Trypsin (Venelex) 1 appl TP DAILY [facility] Stop: 04/28/18 15:44 Last Admin: 03/03/18 08:41 Dose: 1 appl Diltiazem HCl (Cardizem) 60 mg PO Q6HR [facility] Stop: 05/02/18 17:59 Last Admin: 03/03/18 23:57 Dose: Not Given Divalproex Sodium (Depakote Dr) 375 mg PO [facility]; Protocol Stop: 04/27/18 20:59 Last Admin: 03/03/18 22:00 Dose: 375 mg Glimepiride (Amaryl) 4 mg PO DAILY [facility] Stop: 04/28/18 08:59 Last Admin: 03/03/18 08:41 Dose: 4 mg Insulin Aspart (Novolog Insulin Sliding Scale) 0 units SUBQ [facility]; Protocol Stop: 04/27/18 16:29 Last Admin: 03/03/18 21:52 Dose: Not Given Metformin HCl (Glucophage) 500 mg PO BID [facility] Stop: 04/27/18 16:59 Last Admin: 03/03/18 16:42 Dose: 500 mg Metoprolol Tartrate (Lopressor) 5 mg IV Q4HR PRN PRN Reason: HR ABOVE 120 Stop: 05/02/18 15:59 Last Admin: 03/03/18 19:36 Dose: 5 mg Quetiapine Fumarate (Seroquel) 50 mg PO TID [facility]; Protocol Stop: 04/27/18 13:59 Last Admin: 03/03/18 22:00 Dose: 50 mg Simvastatin (Zocor) 20 mg PO [facility]; Protocol Stop: 04/27/18 20:59 Last Admin: 03/03/18 22:00 Dose: 20 mg Tamsulosin HCl (Flomax) 0.4 mg PO DAILY [facility] Stop: 04/28/18 08:59 Last Admin: 03/03/18 08:41 Dose: 0.4 mg Trimethoprim/Sulfamethoxazole (Bactrim Ds) 1 tab PO BID [facility] Stop: 05/01/18 08:59 Last Admin: 03/03/18 16:42 Dose: 1 tab Warfarin Sodium (Coumadin Per Pharmacy) 1 ea [facility] PRN PRN; Protocol PRN Reason: RX MONITORING Stop: 04/28/18 14:06 General: no acute distress, well developed, well nourished HEENT: atraumatic, normocephalic, PERRLA Neck: supple, no thyromegaly Cardiovascular: S1S2, regular Lungs: clear to auscultation bilaterally, clear to percussion Abdomen: soft, no tender Extremities: other (RIght BKA. Left heel wound.), no cyanosis, no clubbing, no edema Neurological: awake, alert, oriented Infectious Disease Assmt/Plan - Assessment Assessment: 1. MRSA colonization. 2. Left heel wound. 3. Non compliance. 4. DM2 - Plan Plan: Wounc care, bactrimDS for 5 days. DC plan. Nutritional Asmnt/Malnutr-PDOC - Dietary Evaluation Malnutrition Findings (Please click <Entered> for more info): Nutritional Asmnt/Malnutrition Start: 02/28/18 10: 48 Text: Status: Complete Freq: Protocol: Document 02/28/18 10:48 REESE (Rec: 02/28/18 10:55 REESE CABRERA- [email or web address]) Nutritional Asmnt/Malnutrition Patient General Information Diagnosis non healing diabetic foot ulcer Pertinent Medical Hx/Surgical Hx HTN, DM II, hyplipidemia Subjective Information Pt asleep at time of visit, unable to wake, will continue to try for coumadin education Current Diet Order/ Nutrition Support [facility] Pertinent Medications novolog, metrformin, coumadin Pertinent Labs 02/27: POC glucose 111-140 Nutritional Hx/Data Height 1.78 m Height (Calculated Centimeters) 177.8 Current Weight (lbs) 85.275 kg Weight (Calculated Kilograms) 85.3 Weight (Calculated Grams) 01853.4 Body Mass Index (BMI) 26.9 Weight Status Overweight GI Symptoms GI Symptoms None Last BM none noted Cultural/Ethnic/Jewish Belief unknown [facility] Skin Integrity/Comment: Khurram score 13: L decubitis ulceration, sacrum pressure area Current %PO Good (75-100%) Estimated Nutritional Goals BEE in Kcals: Using Current wt Calories/Kcals/Kg MSJ x AF1.2-1.3 Kcals Calculated 1961-2124kcals/day Protein: Using Current wt Protein g/kg/kg Protein Calculated 85g/day Fluid: ml per MD Nutritional Problem 1. Problem Problem No nutrition diagnosis at this time Intervention/Recommendation Comments Recommend continuing [facility] [place] diet Expected Outcomes/Goals Expected Outcomes/Goals PO intake >75% of meals
--- NOTE | 2018-03-04 02:39 | Progress Notes ---
DATE: 03/02/2018 INFECTIOUS DISEASE SUBJECTIVE: The patient lying in the bed, not in acute distress. OBEJECTIVE: VITAL SIGNS: Shows temperature is 97.6, pulse 61, respirations 17, blood pressure 136/72. GENERAL: The patient is comfortable lying in the bed, not in acute distress. HEENT: Head is normocephalic. Atraumatic. Oral cavity moist, pink tongue. NECK: Supple, no JVD, no bruit. Trachea in midline. CHEST: Bilateral breath sounds. No crackles or wheezing. HEART: S1, S2 within normal limits. Regular rhythm. No murmur, no gallop. ABDOMEN: Soft, nontender, nondistended. Bowel sounds present. EXTREMITIES: No cyanosis, no clubbing, no edema. 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 Wound culture grew MRSA. ASSESSMENT AND PLAN: 1. Left ankle wound culture grew MRSA. 2. 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 3. Diabetes mellitus type 2. 4. Hyperlipidemia. 5. Hypertension. 6. Severe decompression. RECOMMENDATIONS: Continue Bactrim p.o. for 2 weeks total and discharge plan. JOB# [id number]
[2018-03-04] MEDS: Diltiazem 30 mg Tab PO SCH ×2 (05:26→12:44)
[2018-03-04 06:44] LABS: HEMATOCRIT 37.3 % (41.0-60); HEMOGLOBIN 12.3 gm/dL (12-16); MEAN CELL VOLUME 86.5 fl (80-99); MEAN CORPUSCULAR HEMOGLOBIN 28.6 pg (27.0-31.0); MEAN CORPUSCULAR HGB CONC 33.1 pg (28.0-36.0); MEAN PLATELET VOLUME 8.3 fl; PLATELET COUNT 250 Th/cmm (150-400); RED BLOOD COUNT 4.31 Mil/cmm (3.80-5.80); RED CELL DISTRIBUTION WIDTH 14.6 % (11.5-20.0); WHITE BLOOD COUNT 8.4 Th/cmm (4.8-10.8)
[2018-03-04 06:50] LABS: INR 2.91 (0.5-1.4); PROTHROMBIN TIME (TEST) 28.8 SECONDS (9.5-11.5)
[2018-03-04 07:03] LABS: ALB/GLOB RATIO 1.1 (1.0-1.8); ALBUMIN 3.6 gm/dL (4.2-5.5); ALKALINE PHOSPHATASE 88 U/L (34-104); ANION GAP 19.7 (7.0-16.0); BILIRUBIN,TOTAL 1.1 mg/dL (0.3-1.0); BUN - UREA NITROGEN 19 mg/dL (7-25); CALCIUM SERUM 9.3 mg/dL (8.6-10.3); CARBON DIOXIDE 21.4 mEq/L (21.0-31.0); CHLORIDE 92 mEq/L (98-107); GFR AFRICAN-AMERICAN > 60.0 ml/min (>90); GFR NON AFRICAN-AMERICAN > 60.0 ml/min; GLUCOSE 69 mg/dL (70-105); POTASSIUM SERUM 4.1 mEq/L (3.5-5.1); SGOT 85 U/L (13-39); SGPT/ALT 81 U/L (7-52); SODIUM SERUM 129 mEq/L (136-145); TOTAL PROTEIN,SERUM 6.8 gm/dL (6.0-8.3)
[2018-03-04] MEDS: INSULIN ASPART SLIDING SCALE 100 UNITS/ML UNIT SUBQ SCH ×2 (07:31→11:45)
[2018-03-04 07:32] LABS: BAND NEUTROPHILE 10 % (0-10); BASOPHIL 0 % (0-3); EOSINOPHIL 1 % (0-5); LYMPHOCYTE 8 % (20-50); MONOCYTE 8 % (2-10); NEUTROPHILS 73 % (40-80)
[2018-03-04] MEDS: Venelex 60gm Tube TP SCH (09:57)
[2018-03-04] MEDS: Sulfamethoxazole/TMP 800/160mg Tab PO SCH (09:57)
[2018-03-04] MEDS ORDERED: Sodium Chloride 0.9% 1,000 ML IV SCH (11:00)
--- NOTE | 2018-03-04 17:07 | Cardiology ---
03/04/[address] Corley. PROCEDURE: Echocardiogram. M-MODE ECHOCARDIOGRAM: Mitral valve, anterior leaflet of mitral valve shows normal excursion, EF velocity. Posterior leaflet of the mitral valve shows normal excursion. Left ventricular posterior wall shows increased thickness, normal excursion. Interventricular septum shows increased thickness, normal excursion, hypertrophy of the left ventricle, ejection fraction 65%. Left atrium normal. Aortic root shows normal dimension, normal excursion of aortic leaflets. CONCLUSION: Hypertrophy of the left ventricle, ejection fraction 65%. 2D ECHO: Long axis view showed normal sized left ventricle with hypertrophy of the left ventricle. Left atrium normal. Aortic root shows normal dimension, normal excursion of aortic leaflets. Short axis view of mitral valve normal. Short axis view of aortic valve normal. Apical four chamber view showed normal sized left ventricle with hypertrophy of the left ventricle. Left atrium normal. Right ventricular cavity, right atrium normal, no pericardial effusion. CONCLUSION: Hypertrophy of the left ventricle, ejection fraction 65%. Doppler study showed trace mitral regurgitation, trace tricuspid regurgitation, right ventricular systolic pressure 25 mmHg. JOB# [id number]
--- NOTE | 2018-03-05 00:34 | Progress Notes ---
DATE: 03/04/2018 SUBJECTIVE: Chart reviewed and the patient interviewed. Also, discussed the patient's condition with the staff and reviewed records and labs. The patient is still depressed and anxious, but his affect is brighter. The patient also is easy to follow direction. Also, is interacting more with peers and with others. Otherwise, the patient denies any side effects of medications. ASSESSMENT: The patient is less agitated and less irritable. TREATMENT PLAN: Continue to monitor behavior and condition closely. Also, continue adjusting psychotropic medications and working on behavioral modification. JOB# [id number]
== END 2018-03-04 13:27 | DRG 871 ==
LOC: ER 18:57 → MSI 21:00 → TELE 03-03 15:19
PROVIDERS: ADMIT Internal Medicine; ATTEND Internal Medicine
DX: A41.9 Sepsis, unspecified organism (principal); R53.2 Functional quadriplegia; N39.0 Urinary tract infection, site not specified; I69.354 Hemiplegia and hemiparesis following cerebral infarction affecting left non-dominant side; F31.32 Bipolar disorder, current episode depressed, moderate; I47.1 Supraventricular tachycardia; L03.116 Cellulitis of left lower limb; L97.329 Non-pressure chronic ulcer of left ankle with unspecified severity; E78.5 Hyperlipidemia, unspecified; I10 Essential (primary) hypertension; E11.65 Type 2 diabetes mellitus with hyperglycemia; M19.90 Unspecified osteoarthritis, unspecified site; E11.40 Type 2 diabetes mellitus with diabetic neuropathy, unspecified; B95.62 Methicillin resistant Staphylococcus aureus infection as the cause of diseases classified elsewhere; I48.0 Paroxysmal atrial fibrillation; N40.0 Benign prostatic hyperplasia without lower urinary tract symptoms; Z22.322 Carrier or suspected carrier of Methicillin resistant Staphylococcus aureus; Z89.511 Acquired absence of right leg below knee; Z79.84 Long term (current) use of oral hypoglycemic drugs; Z83.3 Family history of diabetes mellitus; Z82.49 Family history of ischemic heart disease and other diseases of the circulatory system
CPT/HCPCS: 36415-UA; 80053-TC; 81001-TC; 82550-TC; 82948-90; 83605; 84484-TC; 85007-TC; 85025-TC; 85610-TC; 85730-TC; 87070-90; 87075-90; 87086-90; 87205-90; 90799; 93005; J1815; J1956; J3370; J7030; J7040; Z7610

== ENCOUNTER 2018-03-09 02:04 | Emergency (ER) | payer MEDICARE, MEDICAID ==
--- NOTE | 2018-03-09 02:42 | ED Physician Chart ---
ED Chief Complaint/HPI - Patient Information Date Seen:: 03/09/18 Time Seen:: 02:20 Chief Complaint:: abn labs History of Present Illness:: 67 yr old multple medical problems with dm htn hyperlipidemia amputation at knee rt and orif rt hip and internall rotated lt foot for elevated wbc 15kinr elevated which was 4.5 2 days ago now more pt awake alert verbal Allergies:: Allergies Allergy/AdvReac Type Severity Reaction Status Date / Time scallops Allergy Verified 03/09/18 02:11 shrimp Allergy Verified 03/09/18 02:11 wheat Allergy Verified 03/09/18 02:11 Vitals:: Vital Signs - 8 hr 03/09/18 02:10 Temp 99.3 F HR 117 RR 20 BP 103/59 O2 Sat % 94 ED Review of Systems - Review of Systems General/Constitutional: No fever Skin: Skin lesions Head: No headache ENT: No earache Neck: No neck pain Cardio Vascular: No chest pain Pulmonary: No SOB GI: No vomiting G/U: No dysuria Musculoskeletal: Bone or joint pain, Muscle pain, Other (internally rotated lt leg rt hip orif with ulcer lt ankle ulcer lt sided weakness denies cva) Psychiatric: Prior psych history, Other (schizo bipolar) ED Past Medical History - Past Medical History Past Medical History: HTN, DM, Dyslipidemia, Other (uti ) Family Medical History - Family Member Father History Unknown: Yes Ethnicity: Unknown Living Status: Unknown Hx Family Cancer: No Hx Family Coronary Artery Disease: No Hx Family Congestive Heart Failure: No Hx Family Hypertension: No Hx Family Stroke: No Hx Family Diabetes: No Hx Family Seizures: No Hx Family Dementia: No Hx Family AIDS: No Hx Family HIV: No Hx Family COPD: No Hx Family Hepatitis: No Hx Family Psychiatric Problems: No Hx Family Tuberculosis: No ED Physical Exam - Physical Examination Head: Atraumatic Eyes: Lids, conjuctiva normal Other Skin comments:: rt buttock ulcer lt ankle ulcer lt sided weakness Neck: Nontender Respiratory: Nl effort/Exclusion Cardio Vascular: RRR Other Extremities comments:: rt bka rt hip orif lt leg internally rotated Neuro/Psych: Alert/oriented ED Septic Shock - . Is Septic Shock (SBP<90, OR Lactate>4 mmol\L) present?: No - <6hrs of presentation: Vital Signs: Vital Signs - 8 hr 03/09/18 02:10 Temp 99.3 F HR 117 RR 20 BP 103/59 O2 Sat % 94
[2018-03-09 02:56] LABS: HEMATOCRIT 33.1 % (41.0-60); HEMOGLOBIN 11.1 gm/dL (12-16); MEAN CELL VOLUME 83.4 fl (80-99); MEAN CORPUSCULAR HGB CONC 33.6 pg (28.0-36.0); MEAN PLATELET VOLUME 8.1 fl; PLATELET COUNT 335 Th/cmm (150-400); RED BLOOD COUNT 3.97 Mil/cmm (3.80-5.80); RED CELL DISTRIBUTION WIDTH 14.5 % (11.5-20.0)
[2018-03-09 03:06] LABS: WHITE BLOOD COUNT 19.7 Th/cmm (4.8-10.8)
[2018-03-09] MEDS ORDERED: Sodium Chloride 0.9% 250 ML IV ONE ×2 (03:30)
[2018-03-09 03:41] LABS: TROP I 0.23 ng/mL (0.01-0.05)
[2018-03-09 05:04] LABS: % BASOPHILS 0.9 % (0.0-2.0); % EOSINOPHILS 0.1 % (0.0-5.0); % LYMPHOCYTES 2.3 % (20.0-50.0); % MONOCYTES 0.9 % (2.0-10.0); % NEUTROPHILS 95.8 % (40.0-80.0); BAND NEUTROPHILE 1 % (0-10); BASOPHIL 0 % (0-3); EOSINOPHIL 1 % (0-5); LYMPHOCYTE 6 % (20-50); MONOCYTE 3 % (2-10); NEUTROPHILS 89 % (40-80)
[2018-03-09 06:43] LABS: SODIUM SERUM 118 mEq/L (136-145)
[2018-03-09 06:44] LABS: ANION GAP 21.3 (7.0-16.0); BUN - UREA NITROGEN 24 mg/dL (7-25); CHLORIDE 84 mEq/L (98-107); GFR AFRICAN-AMERICAN > 60.0 ml/min (>90); GFR NON AFRICAN-AMERICAN > 60.0 ml/min; GLUCOSE 90 mg/dL (70-105); POTASSIUM SERUM 4.3 mEq/L (3.5-5.1)
[2018-03-09 06:45] LABS: ALB/GLOB RATIO 0.4 (1.0-1.8); ALBUMIN 1.9 gm/dL (4.2-5.5); CALCIUM SERUM 9.4 mg/dL (8.6-10.3); TOTAL PROTEIN,SERUM 6.3 gm/dL (6.0-8.3)
[2018-03-09 06:46] LABS: SGOT 190 U/L (13-39); SGPT/ALT 319 U/L (7-52)
[2018-03-09 06:47] LABS: ALKALINE PHOSPHATASE 694 U/L (34-104)
[2018-03-09 13:03] LABS: PROTHROMBIN TIME (TEST) > 90.0 SECONDS (9.5-11.5)
[2018-03-09 13:11] LABS: INR > 9.00 (0.5-1.4)
== END 2018-03-09 05:43 | disposition short-term general hospital (02) ==
LOC: ER 02:04
DX: L98.419 Non-pressure chronic ulcer of buttock with unspecified severity (principal); L97.329 Non-pressure chronic ulcer of left ankle with unspecified severity; M62.81 Muscle weakness (generalized); I10 Essential (primary) hypertension; E11.9 Type 2 diabetes mellitus without complications; E78.5 Hyperlipidemia, unspecified; Z79.01 Long term (current) use of anticoagulants
CPT/HCPCS: 99285; 96365; 96367; 84484; 36415; 83605; 85007; 85025; 85610; 82550; 80053; 87040 ×2; J0696; J3370